=== PATIENT | male | born 1960 | race Caucasian/White ===

== ENCOUNTER → 2024-08-11 | Outpatient (CLI) | payer OTHER, SELFPAY ==
--- NOTE | 2024-08-11 07:53 | US_ITS ---
INDICATION: Abnormal results of liver function studies EXAMINATION: Ultrasound US Abdomen Limited (quadrant) TECHNIQUE: Frost scale and color doppler imaging was performed of the right upper quadrant. COMPARISON: No relevant prior comparison study available FINDINGS: LIVER: The liver is within normal limits in echogenicity and borderline in size measuring about 17 cm in length. The portal vein is patent with normal hepatopedal flow. Vague hyperechoic lesion in the left lobe of the liver measuring about 1.2 x 1.2 x 1.9 cm could be due to hemangioma. There is a small calcification measuring about 7 mm. There is no free fluid. GALLBLADDER AND BILIARY TREE: No shadowing gallstone, pericholecystic fluid or gallbladder wall thickening is demonstrated. The gallbladder wall measures 2.4 mm. The proximal common bile duct measures 4 mm, which is within normal limits for the patient''s age. Sonographic Daniel''s sign: Negative. PANCREAS: No focal abnormality is demonstrated in the pancreas as visualized on this exam. No pancreatic ductal dilatation. RIGHT KIDNEY: The right kidney measures 11 cm in length. The renal cortex measures 1 cm. No evidence of hydronephrosis. US/Abdomen Limited IMPRESSION: 1. Vague hyperechoic lesion in the left lobe of the liver statistically likely due to hemangioma. Follow-up examination in 4-6 months is recommended unless there is history of cancer, then multiphase CT scan of the liver suggested. 2. No evidence of gallstones. Electronically Signed: Tristan Rosales MD at 11:54 EDT ,
--- NOTE | 2024-08-11 07:54 | CT_ITS ---
STUDY: CT CHEST WITHOUT CONTRAST REASON FOR EXAM: Male, 64 years old. CHRONIC FATIQUE RADIATION DOSAGE (If Supplied By Facility): CTDIvol = ( 12.19 ) mGy, DLP = ( 219.42 ) mGycm TECHNIQUE: Transaxial imaging was performed without the administration of intravenous contrast material. Cardiac over read examination. Individualized dose optimization techniques were used for this CT. COMPARISON: No relevant priors. FINDINGS: CHEST Minimal linear scarring at the lung bases and in the right middle lobe. There is no demonstrated pleural abnormality. Normal heart and pericardium. No coronary artery calcification is seen. Normal mediastinum. Normal hilar regions. Normal unenhanced pulmonary arteries. Normal aorta arch and descending thoracic aorta. Normal osseous structures. Small hiatal hernia. Focal calcification in the left lobe of the liver posteriorly. CT/Limited Chest CT Cardiac Only IMPRESSION: No evidence of coronary artery calcification. Electronically Signed: Saad Soria MD at 13:52 EDT ,
--- OUTSIDE RECORDS SUMMARY | 2024-08-11 08:08 | XMS RPT_ITS | CCD ---
Author Organization [facility] Care Team Providers Care Manager Beverage Name Role Phone Papa Schulz MD Primary Care Provider [phone] MISHA BRAVO Referring Unavailable PAPA SCHULZ Primary Care Unavailable MISHA BRAVO Referring Unavailable PAPA SCHULZ Primary Care Unavailable Papa Schulz MD Primary Care Provider Papa Schulz MD Primary Care Provider PAPA SCHULZ Primary Care Unavailable PAPA SCHULZ Primary Care Unavailable DMITRIY MORALES Attending Unavailable PAPA SCHULZ Primary Care Unavailable DMITRIY MORALES Referring Unavailable PAPA SCHULZ Primary Care Unavailable PAPA SCHULZ Primary Care Unavailable DMITRIY MORALES Referring Unavailable PAPA SCHULZ Primary Care Unavailable MISHA BRAVO Attending Unavailable DMITRIY MORALES Referring Unavailable PAPA SCHULZ Primary Care Unavailable PAPA SCHULZ Attending Unavailable LACHO NICOLE III Primary Care Unavailable PAPA SCHULZ Referring Unavailable LACHO NICOLE III Primary Care Unavailable Papa Schulz MD Primary Care Provider Allergies Allergy Classification Reported Allergen(s) Allergy Type Date of Onset Reaction(s) Facility (14 sources) Lactase; Translations: [LACTASE] Drug Allergy 12-20-2006 [facility] Work Phone: Medications Current Medications Medication Drug Class(es) Dates Sig (Normalized) Sig (Original) multivitamin tablet (12 sources) Start: 06-06-2017 take 1 tablet by mouth once daily multivitamin tablet Take 1 tablet by mouth once daily. 0 06/06/2017 Active Comment on above: Take 1 tablet by luis miguel th once daily. perflutren lipid microspheres 1.3 mL in NaCl (PF) 0.9% 10 mL injection (DEFINITY) (10 sources) Start: 08-20-2022 End: 11-19-2023 perflutren lipid microspheres 1.3 mL in NaCl (PF) 0.9% 10 mL injection (DEFINITY) Start: 08-20-2022 End: 11-19-2023 perflutren lipid microsphere s 1.3 mL in NaCl (PF) 0.9% 10 mL injection (DEFINITY) 125 ml sodium chloride 9 mg/ ml prefilled syringe (16 sources) Start: 08-20-2022 End: 11-19-2023 sodium chloride 0.9 % (flush ) 10 mL (BD POSIFLUSH) Completed/Discontinued Medications Medication Drug Class(es) Dates Sig (Normalized) Sig (Original) [id number] 200 actuat albuterol 0.09 mg/actuat metered dose inhaler (20 sources) beta2-Adrenergic Agonist Start: 12-23-2017 End: 01-07-2023 albuterol (PROVENTIL) 5 mg/mL nebu Inhale 0.5 mL as instructed one time only for 1 dose. 1 DOSE NOW - BACK OFFICE. PLACE 0.5 ML PER DROPPER AND 2.5 ML OF NORMAL SALINE INTO RESERVOIR. 1 mL 12/23/2017 01/07/2023 Discontinued (Course of therapy completed) Start: 12-23-2017 End: 01-07-2023 take 2 puff(s) by inhalation every four hours as needed albuterol HFA (PROAIR HFA) 90 mcg/actuation inhaler Indications: URI with cough and congestion Inhale 2 Puffs as instructed every 4 hours as needed. 1 Inhaler 12/23/2017 01/07/2023 Discontinued Comment on above: Inhale 2 Puffs as in structed every 4 hours as needed. Inhale 0.5 mL as ins tructed one time only for 1 dose. 1 DOSE NOW - BACK OFFICE. PLACE 0.5 ML PER DROPPER AND 2.5 ML OF NORMAL SALINE INTO RESERVOIR. polymyxin b [id number] unt/ml / trimethoprim 1 mg/ml ophthalmic solution (2 sources) Dihydrofolate Reductase Inhibitor Antibacterial, Polymyxin-class Antibacterial Start: 09-16-20 take 1 drop(s) into the eye(s) four times daily trimethoprim-polymyxi n (POLYTRIM) 10,000 unit- 1 mg/mL ophthalmic solution Indications: Viral conjunctivitis Use 1 Drop in the left eye four times daily. 10 mL 0 09/16/2022 Active Comment on above: Use 1 Drop in the le ft eye four times daily. predniSONE 20 mg oral tablet (12 sources) Start: 12-24-19 End: 01-08-20 take 2 tablets by mouth once daily predniSONE (DELTASONE) 20 mg tablet Indications: URI with cough and congestion Prednisone 40 mg (2-20mg tablets) po QD for 5 days 10 tablet 12/23/2017 01/07/2023 Discontinued (Course of therapy completed) Comment on above: Prednisone 40 mg (2- 20mg tablets) po QD for 5 days Problems Active Problems Problem Classification Problem Date Documented Date Episodic/Chronic Disorders of lipid metabolism (2 sources) Hyperlipidemia, unspecified; Translations: [Pure hypercholesterolemia] Onset: 09-19-2021 Chronic Other lower respiratory disease (6 sources) Dyspnea; Translations: [Shortness of breath] Episodic Other screening for suspected conditions (not mental disorders or infectious disease) (7 sources) Electrocardiogram abnormal; Translations: [Abnormal electrocardiogram [ECG] [EKG]] Onset: 09-19-2021 Episodic Past or Other Problems Problem Classification Problem Date Documented Da te Episodic/Chronic Abdominal hernia (1 source) Recurrent inguinal hernia; Translations: [Unilateral inguinal hernia, without obstruction or gangrene, recurrent] Onset: 12-20-2006 Resolved: 01-20-2015 01-20-2015 Episodic Inflammation; infection of eye (except that caused by tuberculosis or sexually transmitteddisease) (4 sources) Viral conjunctivitis; Translations: [Viral conjunctivitis, unspecified] Onset: 09-16-2022 Episodic Malaise and fatigue (2 sources) Fatigue; Translations: [Other fatigue] Onset: 03-02-2022 Episodic Other lower respiratory disease (2 sources) Shortness of breath; Translations: [Shortness of breath] Onset: 03-02-2022 Episodic Results Test Name Value Interpretation Reference Range Facility [facility] 09-16-2022 [facility] Office Visit (UCUPNO ) RICARDO RUSS ([id number]) 1960 M Date Time Provider Department 09/16/22 9:50 AM KAYLIE FOX During your visit today, we recorded the following information about you: Temperature Pulse Respiration Blood pressure 98.3 degrees 77/minute 16/minute 141/83 Weight Height 68 kg 1.676 m Kaylie Fox APRN.MEDICAL STAFF COORDINATOR 09/16/2022 10:46 AM Signed [facility] Kaylie Fox APRN.CNP REFERRING PROVIDER: Self Ricardo Russ is a 62 year old male who is here for evaluation of eye drainage. History of Illness Since Last Visit: Patient presents with eye complaints for approximately 2 weeks. He has had irritation, SCHMITT's, watery eyes. Drainage has been clear. He denies any illness prior to the complaints of eye drainage. He did have some mild allergy symptoms. He states the itchiness has resolved, but he continues to complain of drainage. Drainage is not purulent and stringy. His eyes are not matted shut in the morning. He denies any URI or sinus complaints. He denies any complaints of fever or chills. Other than the watery drainage from the eyes, he has been healthy. He did use some eyedrops his granddaughter had. He was concerned because the drops were , but states they were helping and symptoms nearly resolved. HISTORY History reviewed. No pertinent past medical history. PAST SURGICAL HISTORY Procedure Laterality Date APPENDECTOMY COLONOSCOPY FLX DX W/COLLJ SPEC WHEN PFRMD 02/16/15 Colonoscopy INGUINAL HERNIA REPAIR HX 1977 LAPS SURG RPR RECURRENT INGUINAL HERNIA 01/20/07 right PAST SURGICAL HISTORY OF 6th digits removed bilateral hands and feet RPR 1ST INGUN HRNA AGE 5 YRS/> REDUCIBLE 2002 Hernia repair, inguinal right RPR 1ST INGUN HRNA AGE 5 YRS/> REDUCIBLE 1995 Hernia repair, inguinal Left TONSILLECTOMY PRIMARY/SECONDARY Tonsillectomy Social History Tobacco Use Smoking status: Never Smokeless tobacco: Never Substance Use Topics Alcohol use: Yes Comment: rarely Drug use: No ALLERGIES: ALLERGIES Allergen Reactions Lactose Intolerance* MEDICATIONS: Current Outpatient Medications Medication Sig multivitamin tablet Take 1 tablet by mouth once daily. trimethoprim-polymyxin (POLYTRIM) 10,000 unit- 1 mg/mL ophthalmic solution Use 1 Drop in the left eye four times daily. predniSONE (DELTASONE) 20 mg tablet Prednisone 40 mg (2-20mg tablets) po QD for 5 days (Patient not taking: Reported on 09/16/2022) albuterol HFA (PROAIR HFA) 90 mcg/actuation inhaler Inhale 2 Puffs as instructed every 4 hours as needed. (Patient not taking: No sig reported) albuterol (PROVENTIL) 5 mg/mL nebu Inhale 0.5 mL as instructed one time only for 1 dose. 1 DOSE NOW - BACK OFFICE. PLACE 0.5 ML PER DROPPER AND 2.5 ML OF NORMAL SALINE INTO RESERVOIR. Current Facility-Administered Medications Medication Dose Route Frequency perflutren lipid microspheres 1.3 mL in NaCl (PF) 0.9% 10 mL injection (DEFINITY) INTRAVENOUS DIRECTED PRN sodium chloride 0.9 % (flush) 10 mL (BD POSIFLUSH) 10 mL INTRAVENOUS DIRECTED PRN sodium chloride 0.9 % (flush) 10 mL (BD POSIFLUSH) 10 mL INTRAVENOUS DIRECTED PRN IMMUNIZATIONS: Immunization History Administered Date(s) Administered Tdap (Age 7+) 01/20/2015 REVIEW OF SYSTEMS Review of Systems Constitutional: Negative for chills, fatigue and fever. HENT: Negative for congestion, postnasal drip, rhinorrhea, sinus pressure, sinus pain and sore throat. Eyes: Positive for discharge, redness and itching. Negative for photophobia, pain and visual disturbance. Respiratory: Negative for cough, chest tightness, shortness of breath and wheezing. Vital Signs: BP 141/83 Pulse 77 Temp 98.3 Resp 16 Ht 5' 6 (1.68m) Wt 150 lb (68.0kg) SpO2 99% BMI 24.22 kg/(m2). Physical Exam Constitutional: Appearance: Normal appearance. He is normal weight. HENT: Head: Normocephalic and atraumatic. Nose: Nose normal. Eyes: General: Lids are normal. Lids are everted, no foreign bodies appreciated. Vision grossly intact. Gaze aligned appropriately. No allergic shiner, visual field deficit or scleral icterus. Right eye: Discharge present. No foreign body or hordeolum. Left eye: Discharge (Lt > Rt) present.No foreign body or hordeolum. Extraocular Movements: Extraocular movements intact. Conjunctiva/sclera: Left eye: Hemorrhage (very mild) present. Comments: Cataract Rt eye Pulmonary: Effort: Pulmonary effort is normal. Musculoskeletal: General: Normal range of motion. Cervical back: Normal range of motion. Skin: General: Skin is warm and dry. Neurological: Mental Status: He is alert. Psychiatric: Mood and Affect: Mood normal. Behavior: Behavior normal. Thought Content: Thought content normal. Judgment: Judgment normal. DATA REVIEW Oximetry : 99 (more content not included)... [facility] (CARDWS) RICARDO RUSS ([id number]) 1960 M Date Time Provider Department 09/06/22 MISHA BRAVO During your visit today, we recorded the following information about you: Natalie Owusu LPN 09/06/2022 1:31 PM Signed Michelle with [employer] called to report Zio Results: Result: V-Tach 5 beats Duration: 2 seconds Heart rate: 86-176 beats per minute SVT also in scan. Will upload results to site. Please review and advise. Natalie Cole RN 09/07/2022 3:43 PM Signed Claudia Desai APRN.MEDICAL STAFF COORDINATOR You 4 hours ago (11:04 AM) Reviewed. 2 runs of VT, 2 runs of SVT. Recent normal stress echo. Follow up with Dr. Bravo as planned for consideration of addition of BB if symptomatic with brief SVT. Thank you! Claudia Desai APRN.STEPHANIA Cole RN 09/07/2022 3:43 PM Signed Pt. notified. Voices understanding. Has follow up with Dr. Bravo on 11/12/22. States he will let us know if he becomes symptomatic prior to that office visit. Corrina Cole RN Allergies As of Date: 09/06/2022 Noted Allergy Reaction LACTOSE INTOLERANCE (LACTASE) 12/20/2006 Date Reviewed: 08/20/2022 Reviewed by: Corrina Cole RN - Fully Assessed Reason for Visit: Results [95] Prescriptions as of 09/07/2022 - predniSONE (DELTASONE) 20 mg tablet Prednisone 40 mg (2-20mg tablets) po QD for 5 days - albuterol HFA (PROAIR HFA) 90 mcg/actuation inhaler Inhale 2 Puffs as instructed every 4 hours as needed. - albuterol (PROVENTIL) 5 mg/mL nebu Inhale 0.5 mL as instructed one time only for 1 dose. 1 DOSE NOW - BACK OFFICE. PLACE 0.5 ML PER DROPPER AND 2.5 ML OF NORMAL SALINE INTO RESERVOIR. - multivitamin tablet Take 1 tablet by mouth once daily. Facility-Administered Medications as of 09/07/2022 - perflutren lipid microspheres 1.3 mL in NaCl (PF) 0.9% 10 mL injection (DEFINITY) - sodium chloride 0.9 % (flush) 10 mL (BD POSIFLUSH) - sodium chloride 0.9 % (flush) 10 mL (BD POSIFLUSH) Problem List As Of Date 09/06/2022 Noted Resolved Inguinal hernia without mention of obstruction *12/20/2006 01/20/2015 Encounter Status:Closed by CORRINA COLE on 09/07/22 Normal [facility] ECHOon 08-31-2022 Echocardiography Echocardiography Report: Transthoracic Echo [facility] Date of service: 08/31/2022 8:16:22 AM Ordering physician: MISHA BRAVO Indication: Fatigue; shortness of breath Technologist: Molly Khan [facility] Interpreting physician: Kannan Hernandez MD PATIENT: Name: MR. RICARDO RUSS : 1960 Age: 62 years Gender: M Primary rhythm: sinus. Height: 167.64 cm BSA: 1.82 m Weight: 70.76 kg BMI: 25.2 kg/m Heart rate 69 bpm Blood pressure 129/90 mmHg Agitated saline was administered to rule out shunt. Color Doppler was utilized to interrogate the cardiac valves assessed and spectral Doppler was utilized to determine the flow velocities and pressure gradients reported in this exam. MEASUREMENTS: Value Indexed Normal Max aortic dimension 2.7 cm Ao < 3.8 Left atrial volume 74 ml (biplane A-L) 41 ml/m Lexi <= 34 LV ID (diastole) 3.4 cm (2D) 1.87 cm/m LV ID (systole) 2.3 cm (2D) 1.28 cm/m IVS, leaflet tips 1.0 cm (2D) Posterior wall thickness 1.1 cm (2D) Left ventricular mass 105 g (2D) 58 g/m LV stroke volume 52 ml (2D biplane) LV end diastolic volume 75 ml (2D biplane) 41.1 ml/m 34<=EDVi<75 LV end systolic volume 23 ml (2D biplane) 12.4 ml/m Ejection Fraction 70 % (2D biplane) EF > 52 FINDINGS: LEFT VENTRICLE The left ventricle is normal in size. There is mild concentric left ventricular hypertrophy. Left ventricular systolic function is normal. Indeterminate left ventricular diastolic dysfunction. Mitral annular lateral E/e': 7.3. Mitral annular septal E/e': 11.5. Definity contrast used for endocardial border detection. Wall Motion: All scored segments are normal. RIGHT VENTRICLE The right ventricle is dilated. Right ventricular systolic function is normal. RV systolic tissue Doppler velocity is 15.3 cm/s. Tricuspid annular displacement is 1.9 cm. Estimated right ventricular systolic pressure is 47 mmHg consistent with mild pulmonary hypertension. Estimated right atrial pressure is 3 mmHg based on IVC assessment. LEFT ATRIUM The left atrial cavity is mildly dilated. Pulmonary Veins: The pulmonary venous pattern showed blunted systolic flow. RIGHT ATRIUM The right atrial cavity is dilated. Inferior Vena Cava: The inferior vena cava appears normal measuring 1.8 cm. The vessel decreases greater than 50 percent with inspiration. MITRAL VALVE The mitral valve leaflets are structurally normal. There is mild (1+ - 2+) mitral valve regurgitation. The pressure half time is 44 msec. The peak mitral E/A ratio is 2.09. The average mitral E/e' ratio is 9.4. The mitral flow deceleration time is 153 msec. TRICUSPID VALVE The tricuspid valve leaflets are structurally normal. There is mild (1+ - 2+) tricuspid valve regurgitation. AORTIC VALVE There is no aortic valve regurgitation. Tricuspid aortic valve. There is mild thickening. The peak gradient is 6 mmHg (peak velocity = 123.0 cm/s). PULMONIC VALVE The pulmonic valve was not seen or not interrogated. AORTA The visualized aorta is normal in size. Measurements - Mid ascending aorta 2.7 cm. PULMONARY ARTERIES The pulmonary arteries are unseen or not interrogated. INTERATRIAL SEPTUM There is evidence of intracardiac shunting as detected by agitated saline contrast. INTERVENTRICULAR SEPTUM The interventricular septum is normal. PERICARDIUM There is no pericardial effusion. CONCLUSIONS: - Exam indication: Fatigue; shortness of breath - The left ventricle is normal in size. There is mild concentric left ventricular hypertrophy. Left ventricular systolic function is normal. EF = 70 5% (2D biplane) Definity contrast used for endocardial border detection. Indeterminate left ventricular diastolic dysfunction. - The right ventricle is dilated. Right ventricular systolic function is normal. - The left atrial cavity is mildly dilated. - The right atrial cavity is dilated. - There is mild to moderate mitral regurgitation. - There is mild to moderate tricuspid regurgitation. - Agitated saline study performed is POSITIVE for shunt (clip 96, starting at beat 7). Color flow Doppler also reveals a left to right shunt. - The patient has not had a prior CC echocardiographic exam for comparison. * * * Final * * * CC [employer] Image : [id number] sSISUID Normal [facility] STRESS ECHO TREADMILLon 08-21 STRESS ECHO TREADMILL Stress Ice Skating Teacher Report: Stress Echo [facility] Date of service: 08/31/2022 9:03:36 AM Supervising physician: Kannan Hernandez MD PATIENT: Name: MR. RICARDO RUSS Age: 62 years Gender: M The supervising physician was in the department and immediately available. Final ------ Echocardiography Report: Stress Echo [facility] Date of service: 08/31/2022 9:03:36 AM Ordering physician: MISHA BRAVO Indication: Dyspnea on exertion; abnormal EKG Technologist: Molly Kahn [facility] Interpreting physician: Kannan Hernandez MD PATIENT: Name: MR. RICARDO RUSS : 1960 Age: 62 years Gender: M Height: 167.64 cm BSA: 1.82 m Weight: 70.76 kg BMI: 25.2 kg/m Heart rate 69 bpm Blood pressure 129/90 mmHg MEASUREMENTS: Value Normal Ejection Fraction 70 % (visual est.) EF > 52 FINDINGS: LEFT VENTRICLE Left ventricular systolic function is normal. Definity contrast used for endocardial border detection. Wall Motion: Rest: All scored segments are normal. Stress: All scored segments are normal. STRESS ECHO Peak HR 164 bpm. (104 % MPHR) Peak BP 180 mmHg/86 mmHg. CONCLUSIONS: - Exam indication: Dyspnea on exertion; abnormal EKG - The exercise stress echo was negative for ischemia at 104 % of MPHR (8.3 METS). - Left ventricular systolic function is normal. EF = 70 5% (visual est.) Definity contrast used for endocardial border detection. - Prior CC echocardiographic exam was performed today. Final ------ Stress ECG Report: Stress Echo [facility] Date of service: 08/31/2022 9:03:36 AM Ordering physician: MISHA BRAVO front office specialist: Hilda Sivlerman Food Selector: Debbie Gross Interpreting physician: Kannan Hernandez MD Patient name: MR. RICARDO RUSS Age: 62 years Gender: M Height: 167.64 cm BSA: 1.82 m Weight: 70.76 kg BMI: 25.2 kg/m Indication: Abnormal resting ECG and Shortness of breath Stress ECG Conclusion: Conclusion: Normal Stress ECG Summary: The patient's resting heart rate was 69 bpm and blood pressure was 129/90 mmHg. The patient exercised according to the Romel protocol. The estimated end-exercise MET level achieved using the FRIEND equation was 8.3, which is within the 50th to 75th percentile for age and sex. The estimated end-exercise MET level achieved using the previous ACSM equation was 10.2. The test was terminated due to end of protocol and the total exercise time was 9 minutes and 0 seconds. Other symptoms during the test included SOB. The maximum heart rate was 164 bpm, which is 104% of the predicted heart rate for age. Peak blood pressure was 180/86 mmHg. The double product achieved was [address]. Medications: Last Used NONE Resting ECG: Normal Sinus Rhythm, 1st Degree AV block and RBBB Symptoms at rest: No symptoms Exercise Protocol: Romel Stress Exercise Table: +-----+ +--- -----+ +---+- --+---+----+----+ Stage Speed (MPH) Grade(%) Time (min) HR SYS KATY RPE METS +-----+ +--- -----+ +---+- --+---+----+----+ 1 1.7 10.0 3.0 114 162 86 13.0 4.2 +-----+ +--- -----+ +---+- --+---+----+----+ 2 2.5 12.0 6.0 129 160 84 13.0 6.1 +-----+ +--- -----+ +---+- --+---+----+----+ +-----+ +--- ------+ +---+ ---+---+----+----+ Speed (MPH) Grade (%) Time (min) HR SYS KATY RPE METS +-----+ +--- ------+ +---+ ---+---+----+----+ Final 3.4 14.0 9.00 164 180 86 14.0 8.3 +-----+ +--- ------+ +---+ ---+---+----+----+ Recovery Table: +------+ +--- +---+---+ Stage Time (min) HR SYS KATY +------+ +--- +---+---+ 1 1.0 130 +------+ +--- +---+---+ 2 3.0 98 +------+ +--- +---+---+ 3 4.0 89 138 86 +------+ +--- +---+---+ 4 6.0 85 124 82 +------+ +--- +---+---+ Stress Observations: Resting HR: 69 bpm Peak HR: 164 bpm (104% MPHR) Resting BP: 129 / 90 mmHg Peak BP: 180 / 86 mmHg Total Exercise Time: 9 minutes 0 seconds METS achieved: 8.3 Chronotropic response index (CRI): 1.06 Heart rate recovery (HRR): 34 bpm Rate Pressure Product (RPP): 03506 [place] Treadmill Score: 9.0 Stress Exercise Observations: Reason for test termination: end of protocol, Symptoms during test: Other symptoms during the test included SOB, Heart rate response: Normal CRI (>0.8 Not on B Deandre) and Normal HRR (>12 or >[address]/EC), Blood pressure response: Normal BP respo (more content not included)... Normal [facility] [place] 08-30-2022 CNPN Telephone (CDLBME) RICARDO RUSS ([id number]) 1960 M Date Time Provider Department 08/30/22 DEBBIE GROSSGolden During your visit today, we recorded the following information about you: Debbie Gross RN 08/30/2022 1:56 PM Signed Spoke with patient regarding reminder for stress test tomorrow and given instructions. Allergies As of Date: 08/30/2022 Noted Allergy Reaction LACTOSE INTOLERANCE (LACTASE) 12/20/2006 Date Reviewed: 08/20/2022 Reviewed by: Corrina Cole RN - Fully Assessed Reason for Visit: Reminder Call [[id number]] Prescriptions as of 08/30/2022 - predniSONE (DELTASONE) 20 mg tablet Prednisone 40 mg (2-20mg tablets) po QD for 5 days - albuterol HFA (PROAIR HFA) 90 mcg/actuation inhaler Inhale 2 Puffs as instructed every 4 hours as needed. - albuterol (PROVENTIL) 5 mg/mL nebu Inhale 0.5 mL as instructed one time only for 1 dose. 1 DOSE NOW - BACK OFFICE. PLACE 0.5 ML PER DROPPER AND 2.5 ML OF NORMAL SALINE INTO RESERVOIR. - multivitamin tablet Take 1 tablet by mouth once daily. Facility-Administered Medications as of 08/30/2022 - perflutren lipid microspheres 1.3 mL in NaCl (PF) 0.9% 10 mL injection (DEFINITY) - sodium chloride 0.9 % (flush) 10 mL (BD POSIFLUSH) - perflutren lipid microspheres 1.3 mL in NaCl (PF) 0.9% 10 mL injection (DEFINITY) - sodium chloride 0.9 % (flush) 10 mL (BD POSIFLUSH) Problem List As Of Date 08/30/2022 Noted Resolved Inguinal hernia without mention of obstruction *12/20/2006 01/20/2015 Encounter Status:Closed by DEBBIE GROSS on 08/30/22 [facility] 08-20-2022 [facility] Office Visit (CAWSTR ) VENKATRICARDO SORIANO Corey ([id number]) 1960 M Date Time Provider Department 08/20/22 8:20 AM MISHA BRAVOWSTR During your visit today, we recorded the following information about you: Pulse Blood pressure Weight 64/minute 130/80 70.8 kg Misha Bravo MD 08/20/2022 8:49 AM Signed Misha Bravo MD Interventional Cardiology [facility] [address] [place], [place] [address] [phone] Chief Complaint Patient presents with: Consult HISTORY OF PRESENT ILLNESS: Mr. 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 PAST SURGICAL HISTORY Procedure Laterality Date APPENDECTOMY COLONOSCOPY FLX DX W/COLLJ SPEC WHEN PFRMD 02/16/15 Colonoscopy INGUINAL HERNIA REPAIR HX 1977 LAPS SURG RPR RECURRENT INGUINAL HERNIA 01/20/07 right PAST SURGICAL HISTORY OF 6th digits removed bilateral hands and feet RPR 1ST INGUN HRNA AGE 5 YRS/> REDUCIBLE 2002 Hernia repair, inguinal right RPR 1ST INGUN HRNA AGE 5 YRS/> REDUCIBLE 1995 Hernia repair, inguinal Left TONSILLECTOMY PRIMARY/SECONDARY Tonsillectomy FAMILY HISTORY Problem Relation Age of Onset Arthritis Father gout Blood Disease Father blood clots GI Mother irritable bowel dis other (kidney stones [Other]) Brother Heart Paternal Grandfather from [place] Heart Paternal Uncle from [place] None Brother None Brother None Brother Stroke Mother None Sister None Sister None Sister Social History Tobacco Use Smoking status: Never Smokeless tobacco: Never Substance Use Topics Alcohol use: Yes Comment: rarely Drug use: No ALLERGIES Allergen Reactions Lactose Intolerance* Medications: Current Outpatient Medications Medication Sig Dispense Refill multivitamin tablet Take 1 tablet by mouth once daily. 0 predniSONE (DELTASONE) 20 mg tablet Prednisone 40 mg (2-20mg tablets) po QD for 5 days 10 tablet 0 albuterol HFA (PROAIR HFA) 90 mcg/actuation inhaler Inhale 2 Puffs as instructed every 4 hours as needed. (Patient not taking: Reported on 03/02/2022 ) 1 Inhaler 0 albuterol (PROVENTIL) 5 mg/mL nebu Inhale 0.5 mL as instructed one time only for 1 dose. 1 DOSE NOW - BACK OFFICE. PLACE 0.5 ML PER DROPPER AND 2.5 ML OF NORMAL SALINE INTO RESERVOIR. 1 mL 0 Current Facility-Administered Medications Medication Dose Route Frequency Provider Last Rate Last Admin perflutren lipid microspheres 1.3 mL in NaCl (PF) 0.9% 10 mL injection (DEFINITY) INTRAVENOUS DIRECTED PRN Misha Bravo MD sodium chloride 0.9 % (flush) 10 mL (BD POSIFLUSH) 10 mL INTRAVENOUS DIRECTED PRN Khaled Meloud Sleik, MD perflutren lipid microspheres 1.3 mL in NaCl (PF) 0.9% 10 mL injection (DEFINITY) INTRAVENOUS DIRECTED PRBala Bravo MD sodium chloride 0.9 % (flush) 10 mL (BD POSIFLUSH) 10 mL INTRAVENOUS DIRECTED MARLENE Bravo MD Review of Systems Constitutional: Negative for chills, diaphoresis, fever, malaise/fatigue and weight loss. HENT: Negative for congestion, ear discharge, ear pain, hearing loss, nosebleeds, sinus pain, sore throat and tinnitus. Eyes: Negative for blurred vision, double vision, photophobia, pain, discharge and redness. Respiratory: Negative for cough, hemoptysis, sputum production, shortness of breath, wheezing and stridor. Cardiovascular: Negative for chest pain, palpitations, orthopnea, claudication, leg swelling and PND. Gastrointestinal: Negative for abdominal pain, blood in stool, constipation, diarrhea, heartburn, melena, nausea and vomiting. Genitourinary: Negative for dysuria, flank pain, frequency, hematuria and urgency. Musculoskeletal: Negative for back pain, falls, joint pain, myalgias and neck pain. Skin: Negative for itching and rash. Neurological: Positive for weakness. Negative for dizziness, tingling, tremors, sensory change, speech change, focal weakness, seizures, loss of consciousness and headaches. Endo/Heme/Allergies: Negative for environmental allergies and polydipsia. Does not bruise/bleed easily. Psychiatric/Behavioral : Negative for depression, hallucinations, memory loss, substance abuse and suicidal ideas. The patient is not nervous/anxious and does not have insomnia. Physical Examination: Vitals:BP 130/80 Pulse 6 (more content not included)... Normal [facility] 03-05-2022 CNPN Telephone (FAMPWS) RICARDO RUSS ([id number]) 1960 M Date Time Provider Department 03/05/22 DMITRIY MORALES During your visit today, we recorded the following information about you: Dmitriy Morales APRN.MEDICAL STAFF COORDINATOR 03/05/2022 12:23 PM Signed Can you please call the patient and let him know that I reviewed his test results. Urine came back negative for any bacteria. UA showed mild protein. Labs were relatively normal. Vitamin D and thyroid test within normal limits. AST which is a liver function test which is mildly elevated. At this time I see no causes for his symptoms. I would highly encourage him to eat a well-balanced diet, stay well-hydrated, and get adequate sleep. If he is agreeable we can do an at-home sleep study to evaluate for any sleep apnea. Please let me know what he prefers to do. Thank you. Dmitriy Morales APRN.STEPHANIA Moralez LPN 03/05/2022 12:54 PM Signed Patient notified of results, verbalizes understanding of instructions. Becky Moralez LPN Allergies As of Date: 03/05/2022 Noted Allergy Reaction LACTOSE INTOLERANCE (LACTASE) 12/20/2006 Date Reviewed: 03/02/2022 Reviewed by: Dmitriy Morales APRN.STEPHANIA - Fully Assessed Reason for Visit: Results [95] Prescriptions as of 03/15/2022 - predniSONE (DELTASONE) 20 mg tablet Prednisone 40 mg (2-20mg tablets) po QD for 5 days - albuterol HFA (PROAIR HFA) 90 mcg/actuation inhaler Inhale 2 Puffs as instructed every 4 hours as needed. - albuterol (PROVENTIL) 5 mg/mL nebu Inhale 0.5 mL as instructed one time only for 1 dose. 1 DOSE NOW - BACK OFFICE. PLACE 0.5 ML PER DROPPER AND 2.5 ML OF NORMAL SALINE INTO RESERVOIR. - multivitamin tablet Take 1 tablet by mouth once daily. Problem List As Of Date 03/05/2022 Noted Resolved Inguinal hernia without mention of obstruction *12/20/2006 01/20/2015 Encounter Status:Closed by DMITRIY MORALES on 03/15/22 Normal [facility] Bacteria Ur Culton 2 Bacteria identified Cx Nom (U) CULTURE, URINE: No growth (<1,000 CFU/ml) Normal [facility] Comment on above: Performed By: #### 6 30-4 ####[facility] [id number] [place] [address] [place] CBC W Auto Differential pane l (Bld)on 03-02-2022 Basophils (Bld) [#/Vol] 0.07 10*3/uL Normal <0.11 [facility] Comment on above: Order Comment: Speci men Type: BLOOD SPECIMENOrdering Facility: [facility] Address: [address] [place] [address] Performed By: #### 5 7021-8 ####[facility] [id number] [place] [address] [place] Basophils/100 WBC (Bld) 1.1 % Normal [facility] Comment on above: Order Comment: Speci men Type: BLOOD SPECIMENOrdering Facility: [facility] Address: [address] [place] [address] Performed By: #### 5 7021-8 ####[facility] [id number] [address] [place] Differential cell count method Nom (Bld) Auto Normal [facility] Comment on above: Order Comment: Speci men Type: BLOOD SPECIMENOrdering Facility: [facility] Address: [address] [place], [place] [id number] Performed By: #### 5 7021-8 ####[facility] [id number] [place] [address] [place] Eosinophils (Bld) [#/Vol] 0.28 10*3/uL Normal <0.46 [facility] Comment on above: Order Comment: Speci men Type: BLOOD SPECIMENOrdering Facility: [facility] Address: [address] [place], [place] [id number] Performed By: #### 5 7021-8 ####[facility] [id number] [address] [place] Eosinophils/100 WBC (Bld) 4.2 % Normal [facility] Comment on above: Order Comment: Speci men Type: BLOOD SPECIMENOrdering Facility: [facility] Address: [address] [place], [place] [id number] Performed By: #### 5 7021-8 ####[facility] [id number] [address] [place] Erythrocyte distribution width (RBC) [Ratio] 12.7 % Normal 11.5-15.0 [facility] Comment on above: Order Comment: Speci men Type: BLOOD SPECIMENOrdering Facility: [facility] Address: [address] [place], [place] [id number] Performed By: #### 5 7021-8 ####[facility] [id number] [address] [place] [facility] Hematocrit (Bld) [Volume fraction] 44.0 % Normal 39.0-51.0 [facility] Comment on above: Order Comment: Speci men Type: BLOOD SPECIMENOrdering Facility: [facility] Address: [address] [place], [place] [id number] Performed By: #### 5 7021-8 ####[facility] [id number] [place] [address] [place] Hemoglobin (Bld) [Mass/Vol] 14.7 g/dL Normal 13.0-17.0 [facility] Comment on above: Order Comment: Speci men Type: BLOOD SPECIMENOrdering Facility: [facility] Address: [address] [place], [place] [id number] Performed By: #### 5 7021-8 ####[facility] [id number] [place] [address] [place] IMMATURE GRAN % 0.2 % Normal [facility] Comment on above: Order Comment: Speci men Type: BLOOD SPECIMENOrdering Facility: [facility] Address: [address] [place], [place] [id number] Performed By: #### 5 7021-8 ####[facility] [id number] [address] [place] [facility] IMMATURE GRAN ABS <0.03 Normal <0.10 [facility] Comment on above: Order Comment: Speci men Type: BLOOD SPECIMENOrdering Facility: [facility] Address: [address] [place], [place] [id number] Performed By: #### 5 7021-8 ####[facility] [id number] [address] [place] Lymphocytes (Bld) [#/Vol] 2.77 10*3/uL Normal 1.00-4.00 [facility] Comment on above: Order Comment: Speci men Type: BLOOD SPECIMENOrdering Facility: [facility] Address: [address] [place], [place] [id number] Performed By: #### 5 7021-8 ####[facility] [id number] [address] [place] Lymphocytes/100 WBC (Bld) 42.0 % Normal [facility] Comment on above: Order Comment: Speci men Type: BLOOD SPECIMENOrdering Facility: [facility] Address: [address] [place] [address] Performed By: #### 5 7021-8 ####[facility] [id number] [place] [address] [place] MCH (RBC) [Entitic mass] 30.1 pg Normal 26.0-34.0 [facility] Comment on above: Order Comment: Speci men Type: BLOOD SPECIMENOrdering Facility: [facility] Address: [address] [place] [address] Performed By: #### 5 7021-8 ####[facility] [id number] [place] [address] [place] MCHC (RBC) [Mass/Vol] 33.4 g/dL Normal 30.5-36.0 [facility] Comment on above: Order Comment: Speci men Type: BLOOD SPECIMENOrdering Facility: [facility] Address: [address] [place] [address] Performed By: #### 5 7021-8 ####[facility] [id number] [place] [address] [place] MCV (RBC) [Entitic vol] 90.0 fL Normal 80.0-100.0 [facility] Comment on above: Order Comment: Speci men Type: BLOOD SPECIMENOrdering Facility: [facility] Address: [address] [place], [place] [id number] Performed By: #### 5 7021-8 ####[facility] [id number] [place] [address] [place] Monocytes (Bld) [#/Vol] 0.85 10*3/uL Normal <0.87 [facility] Comment on above: Order Comment: Speci men Type: BLOOD SPECIMENOrdering Facility: [facility] Address: [address] [place] [address] Performed By: #### 5 7021-8 ####[facility] [id number] [address] [place] Monocytes/100 WBC (Bld) 12.9 % Normal [facility] Comment on above: Order Comment: Speci men Type: BLOOD SPECIMENOrdering Facility: [facility] Address: [address] [place] [address] Performed By: #### 5 7021-8 ####[facility] [id number] [place] [address] [place] Neutrophils (Bld) [#/Vol] 2.62 10*3/uL Normal 1.45-7.50 [facility] Comment on above: Order Comment: Speci men Type: BLOOD SPECIMENOrdering Facility: [facility] Address: [address] [place], [place] [id number] Performed By: #### 5 7021-8 ####[facility] [id number] [place] [address] [place] Neutrophils/100 WBC (Bld) 39.6 % Normal [facility] Comment on above: Order Comment: Speci men Type: BLOOD SPECIMENOrdering Facility: [facility] Address: [address] [place], [place] [id number] Performed By: #### 5 7021-8 ####[facility] [id number] [place] [address] [place] Nucleated RBC (Bld) [#/Vol] 10*3/uL Normal <0.01 [facility] Comment on above: Order Comment: Speci men Type: BLOOD SPECIMENOrdering Facility: [facility] Address: [address] [place], [place] [id number] Performed By: #### 5 7021-8 ####[facility] [id number] [place] [address] [place] Nucleated RBC/100 WBC (Bld) [Ratio] 0.0 /100 WBC Normal [facility] Comment on above: Order Comment: Speci men Type: BLOOD SPECIMENOrdering Facility: [facility] Address: [address] [place], [place] [id number] Performed By: #### 5 7021-8 ####[facility] [id number] [place] [address] [place] Platelet mean volume (Bld) [Entitic vol] 9.5 fL Normal 9.0-12.7 [facility] Comment on above: Order Comment: Speci men Type: BLOOD SPECIMENOrdering Facility: [facility] Address: [address] [place], [place] [id number] Performed By: #### 5 7021-8 ####[facility] [id number] [place] [address] [place] Platelets (Bld) [#/Vol] 223 10*3/uL Normal 150-400 [facility] Comment on above: Order Comment: Speci men Type: BLOOD SPECIMENOrdering Facility: [facility] Address: [address] [place], [place] [id number] Performed By: #### 5 7021-8 ####[facility] [id number] [address] [place] [facility] RBC (Bld) [#/Vol] 4.89 10*6/uL Normal 4.20-6.00 [facility] Comment on above: Order Comment: Speci men Type: BLOOD SPECIMENOrdering Facility: [facility] Address: [address] [place] [address] Performed By: #### 5 7021-8 ####[facility] [id number] [address] OF [facility] WBC (Bld) [#/Vol] 6.60 10*3/uL Normal 3.70-11.00 [facility] Comment on above: Order Comment: Speci men Type: BLOOD SPECIMENOrdering Facility: [facility] Address: [address] [place], [place] [id number] Performed By: #### 5 7021-8 ####[facility] [id number] [address] [place] CNOVon 03-02-2022 CNOV Office Visit (FAMPWS ) RICARDO RUSS ([id number]) 1960 M Date Time Provider Department 03/02/22 1:20 PM DMITRIY MORALES During your visit today, we recorded the following information about you: Pulse Respiration Blood pressure Weight 54/minute 16/minute 140/88 73 kg Dmitriy Morales APRN.MEDICAL STAFF COORDINATOR 03/02/2022 2:24 PM Signed This is a 62 year old male who presents today with: Patient presents with: Acute Visit: SOB and fatique HISTORY OF PRESENT ILLNESS: Ricardo Russ is a 62 year old male. Patient presents with: Acute Visit: SOB and fatique Here in the office for SOB and fatigue. Has noticed he feels exhausted after work. More tired than normal. Has been worse the past 2 months. Noticed SOB about 2-3 weeks ago with exertion. Improves with rest. No illness, fever, chills, abdominal pain, or N/V/D. History of Covid twice, fall 2019 and then Spring 2020. Recovered well. No chest pain, palpitations, dizziness, or edema. BM's regular. PAST MEDICAL HISTORY: History reviewed. No pertinent past medical history. PAST SURGICAL HISTORY Procedure Laterality Date - APPENDECTOMY - COLONOSCOPY FLX DX W/COLLJ SPEC WHEN PFRMD 02/16/15 Colonoscopy - INGUINAL HERNIA REPAIR HX 1977 - LAPS SURG RPR RECURRENT INGUINAL HERNIA 01/20/07 right - PAST SURGICAL HISTORY OF 6th digits removed bilateral hands and feet - RPR 1ST INGUN HRNA AGE 5 YRS/> REDUCIBLE 2002 Hernia repair, inguinal right - RPR 1ST INGUN HRNA AGE 5 YRS/> REDUCIBLE 1995 Hernia repair, inguinal Left - TONSILLECTOMY PRIMARY/SECONDARY Tonsillectomy ALLERGIES Lactose Intolerance [Lactase] MEDICATIONS Current Outpatient Medications Medication Sig - multivitamin tablet Take 1 tablet by mouth once daily. - predniSONE (DELTASONE) 20 mg tablet Prednisone 40 mg (2-20mg tablets) po QD for 5 days - albuterol HFA (PROAIR HFA) 90 mcg/actuation inhaler Inhale 2 Puffs as instructed every 4 hours as needed. (Patient not taking: Reported on 03/02/2022 ) - albuterol (PROVENTIL) 5 mg/mL nebu Inhale 0.5 mL as instructed one time only for 1 dose. 1 DOSE NOW - BACK OFFICE. PLACE 0.5 ML PER DROPPER AND 2.5 ML OF NORMAL SALINE INTO RESERVOIR. No current facility-administered medications for this visit. FAMILY HISTORY Problem Relation Age of Onset - Arthritis Father gout - Blood Disease Father blood clots - GI Mother irritable bowel dis - other (kidney stones [Other]) Brother - Heart Paternal Grandfather from [place] - Heart Paternal Uncle from [place] - None Brother - None Brother - None Brother - Stroke Mother - None Sister - None Sister - None Sister Social History Tobacco Use - Smoking status: Never Smoker - Smokeless tobacco: Never Used Substance Use Topics - Alcohol use: Yes Comment: rarely - Drug use: No REVIEW OF SYSTEMS GENERAL: + Fatigue HEENT: Negative for frequent or significant headaches, No changes in hearing or vision. NECK: Negative for lumps, goiter, pain and significant neck swelling RESPIRATORY: + SOB CARDIOVASCULAR: Negative for chest pain, leg swelling, orthopnea, or palpitations GI: No nausea, vomiting, or diarrhea/constipation. No hematochezia/melena. No heartburn or reflux symptoms. : No history of dysuria, frequency or incontinence MUSCULOSKELETAL: Negative for joint pain or swelling. SKIN: Negative for lesions, rash, and itching ENDOCRINE: Negative for cold or heat intolerance, polyuria, polydipsia and goiter NEURO: No history of headaches, syncope, paralysis, seizures or tremors MOOD: Negative for depression, anxiety, or suicidal ideation. EXAM: BP 140/88 Pulse (!) 54 Resp 16 Wt 73 kg (161 lb) SpO2 97% BMI 25.99 kg/m? PHYSICAL EXAM: General Appearance: Well appearing, alert, in no acute distress, well-hydrated, well nourished. Skin: Skin color, texture, turgor normal, no suspicious rashes or lesions. Head: Normocephalic, no masses, lesions, tenderness or abnormalities. Eyes: Anicteric sclera. Extraocular movements are intact. Neck: Supple, no adenopathy; thyroid symmetric, normal size, no bruits. Lungs: Lungs clear to auscultation. No wheezing, rhonchi, rales. Heart: RRR without murmur, gallop, or rubs. No ectopy. Abdomen: Normal abdominal exam, Abdomen soft, non-tender. Bowel sounds normal. No masses, organomegaly, Negative CVA tenderness. Extremities: No deformities, edema, skin discoloration, clubbing or cyanosis. Good capillary refill. Peripheral Pulses: Normal, Capillary refill <2secs, strong peripheral pulses, Pulses palpable. ECG: Sinus rhythm with first-degree AV block, right bundle branch block. UA: WNL ASSESSMENT/PLAN: 1. Fatigue, unspecified type - ICD9: 780.79, ICD10: R53.83 (primary diagnosis) - Get the following labs and urine testing completed to further evaluate any acute causes of his symptoms. - CBC + DIFF - COMP (more content not included)... Normal [facility] RICARDO RUSS ([id number]) 1960 M Date Time Provider Department 03/02/22 12:45 PM NELLI SHABAZZ [facility] During your visit today, we recorded the following information about you: Temperature Pulse Respiration Blood pressure 97.2 degrees 68/minute 18/minute 128/82 Weight 73 kg Nelli Shabazz APRN.CNP 03/02/2022 1:06 PM Signed Patient triaged at [facility]. Here today with 2 months of sob, fatigue. Denies uri symptoms and chest pain. Referring Provider: SELF [200] Allergies As of Date: 03/02/2022 Noted Allergy Reaction LACTOSE INTOLERANCE (LACTASE) 12/20/2006 Date Reviewed: 03/02/2022 Reviewed by: Mila Reyes LPN - Fully Assessed Reason for Visit: Shortness of Breath [227] Cmt: SOB and fatigue x 2 months Primary Visit Diagnosis:SOB (shortness of breath) [R06.02] Prescriptions as of 03/02/2022 - predniSONE (DELTASONE) 20 mg tablet Prednisone 40 mg (2-20mg tablets) po QD for 5 days - albuterol HFA (PROAIR HFA) 90 mcg/actuation inhaler Inhale 2 Puffs as instructed every 4 hours as needed. - albuterol (PROVENTIL) 5 mg/mL nebu Inhale 0.5 mL as instructed one time only for 1 dose. 1 DOSE NOW - BACK OFFICE. PLACE 0.5 ML PER DROPPER AND 2.5 ML OF NORMAL SALINE INTO RESERVOIR. - multivitamin tablet Take 1 tablet by mouth once daily. Problem List As Of Date 03/02/2022 Noted Resolved Inguinal hernia without mention of obstruction *12/20/2006 01/20/2015 Encounter Status:Closed by NELLI SHABAZZ on 03/02/22 [facility] 03-02-2022 ROMELIA Telephone (HENRIQUE) RICARDO RUSS ([id number]) 1960 M Date Time Provider Department 03/02/22 DMITRIY MORALES During your visit today, we recorded the following information about you: Dmitriy Morales APRN.CNP 03/02/2022 2:59 PM Signed Can you please call the patient and let him know that his chest x-ray was normal. The office will be in touch with him once his lab results are reviewed. Please let me know if he has any questions. Thank you. Dmitriy Morales APRN.STEPHANIA Cates Ma 03/02/2022 3:20 PM Signed Message left on confidential vm Mary Cates Ma Allergies As of Date: 03/02/2022 Noted Allergy Reaction LACTOSE INTOLERANCE (LACTASE) 12/20/2006 Date Reviewed: 03/02/2022 Reviewed by: Dmitriy Morales APRN.CNP - Fully Assessed Reason for Visit: Results [95] Prescriptions as of 03/02/2022 - predniSONE (DELTASONE) 20 mg tablet Prednisone 40 mg (2-20mg tablets) po QD for 5 days - albuterol HFA (PROAIR HFA) 90 mcg/actuation inhaler Inhale 2 Puffs as instructed every 4 hours as needed. - albuterol (PROVENTIL) 5 mg/mL nebu Inhale 0.5 mL as instructed one time only for 1 dose. 1 DOSE NOW - BACK OFFICE. PLACE 0.5 ML PER DROPPER AND 2.5 ML OF NORMAL SALINE INTO RESERVOIR. - multivitamin tablet Take 1 tablet by mouth once daily. Problem List As Of Date 03/02/2022 Noted Resolved Inguinal hernia without mention of obstruction *12/20/2006 01/20/2015 Encounter Status:Closed by AMRY CATES MA on 03/02/22 Normal [facility] Comprehensive metabolic 2000 panelon 03-02-2022 Albumin [Mass/Vol] 4.6 g/dL Normal 3.9-4.9 [facility] Comment on above: Order Comment: Speci men Type: BLOOD SPECIMENOrdering Facility: [facility] Address: [address] [place] [address] Performed By: #### F T4, 3016-3, 42823-1 ####[facility] [id number] [place] [address] [place] ALP [Catalytic activity/Vol] 60 U/L Normal 38-113 [facility] Comment on above: Order Comment: Speci men Type: BLOOD SPECIMENOrdering Facility: [facility] Address: [address] [place], [place] [id number] Performed By: #### F T4, 3016-3, 83517-1 ####[facility] [id number] [place] [address] [place] ALT [Catalytic activity/Vol] 54 U/L Normal 10-54 [facility] Comment on above: Order Comment: Speci men Type: BLOOD SPECIMENOrdering Facility: [facility] Address: [address] Performed By: #### F T4, 3016-3, 44688-4 ####[facility] [id number] [place] [address] [place] Anion gap [Moles/Vol] 7 mmol/L Low 9-18 [facility] Comment on above: Order Comment: Speci men Type: BLOOD SPECIMENOrdering Facility: [facility] Address: [address] [place], [place] [id number] Performed By: #### F T4, 3015-3, ####[facility] [id number] [place] [address] [place] AST [Catalytic activity/Vol] 43 U/L High 14-40 [facility] Comment on above: Order Comment: Speci men Type: BLOOD SPECIMENOrdering Facility: [facility] [facility] Address: [address] [place], [place] [id number] Performed By: #### F T4, 3015-12, 62039-7 ####[facility] LABCLIA [id number] [place] [address] [place] Bilirubin [Mass/Vol] 0.7 mg/dL Normal 0.2-1.3 [facility] Comment on above: Order Comment: Speci men Type: BLOOD SPECIMENOrdering Facility: [facility] Address: [address] [place], [place] [id number] Performed By: #### F T4, 3, ####[facility] LABCLIA [id number] [place] [id number] [place] Calcium [Mass/Vol] 9.9 mg/dL Normal 8.5-10.2 [facility] Comment on above: Order Comment: Speci men Type: BLOOD SPECIMENOrdering Facility: [facility] Address: [address] [place], [place] [id number] Performed By: #### F T4, 3, 60462-8 ####[facility] LABCLIA [id number] [place] [address] [place] Chloride [Moles/Vol] 101 mmol/L Normal 97-105 [facility] Comment on above: Order Comment: Speci men Type: BLOOD SPECIMENOrdering Facility: [facility] Address: [address] [place] [address] Performed By: #### F T4, 3016-3, 17419-7 ####[facility] LABIA [id number] [place] [address] [place] CO2 [Moles/Vol] 29 mmol/L Normal 22-30 [facility] Comment on above: Order Comment: Speci men Type: BLOOD SPECIMENOrdering Facility: [facility] Address: [address] [place] [address] Performed By: #### F T4, 3016-3, 07518-3 ####[facility] LABIA [id number] [address] [facility] Creatinine [Mass/Vol] 1.18 mg/dL Normal 0.73-1.22 [facility] Comment on above: Order Comment: Speci men Type: BLOOD SPECIMENOrdering Facility: [facility] Address: [address] [place] [address] Performed By: #### F T4, 3016-3, 29942-1 ####[facility] LABIA [id number] [address] STATES OF [facility] ESTIMATED GLOMERULAR FILTRATION RATE 70 mL/min/1.73m??? Normal >=60 [facility] Comment on above: Order Comment: Speci men Type: BLOOD SPECIMENOrdering Facility: [facility] Address: [address] [place] [address] Result Comment: Kathrin mated Glomerular Filtration Rate (eGFR) is calculated using the 2020 CKD-EPI creatinine equation. This equation utilizes serum creatinine, sex, and age as parameters. The creatinine assay has traceable calibration to isotope dilution-mass spectrometry. Refer to KDIGO guidelines for clinical interpretation. In patients with unstable renal function, e.g. those with acute kidney injury, the eGFR may not accurately reflect actual GFR. Performed By: #### F , 3015-12, ####[facility]CLIA [id number] [facility] [address] [address] [place] Glucose [Mass/Vol] 84 mg/dL Normal 74-99 [facility] Comment on above: Order Comment: Speccameron wylie Type: BLOOD SPECIMENOrdering Facility: [facility] Address: [address] [place] [address] Result Comment: The [place] Diabetes Association (ADA) provides guidance for cutoff values for fasting glucose and random glucose. The ADA defines fasting as no caloric intake for at least 8 hours. Fasting plasma glucose results between 100 to 125 mg/dL indicate increased risk for diabetes (prediabetes). Fasting plasma glucose results greater than or equal to 126 mg/dL meet the criteria for diagnosis of diabetes. In the absence of unequivocal hyperglycemia, results should be confirmed by repeat testing. In a patient with classic symptoms of hyperglycemia or hyperglycemic crisis, random plasma glucose results greater than or equal to 200 mg/dL meet the criteria for diagnosis of diabetes. Reference: Standards of Medical Care in Diabetes 2016, [place] [employer]. Diabetes Care. 2016.39(Suppl 1). Performed By: #### F , 3015-12, ####[facility] LABCLIA [id number] [place] [address] [place] Potassium [Moles/Vol] 4.9 mmol/L Normal 3.7-5.1 [facility] Comment on above: Order Comment: Megan wylie Type: BLOOD SPECIMENOrdering Facility: [facility] Address: [address] [place] [address] Performed By: #### F , 3015-12, ####[facility] LABCLIA [id number] [facility] [address] [address] [place] Protein [Mass/Vol] 6.2 g/dL Low 6.3-8.0 [facility] Comment on above: Order Comment: Speci men Type: BLOOD SPECIMENOrdering Facility: [facility] Address: [address] [place], [place] [id number] Performed By: #### F T4, 6-3, 42741-4 ####[facility] LABCLIA [id number] [place] [address] [place] Sodium [Moles/Vol] 137 mmol/L Normal 136-144 [facility] Comment on above: Order Comment: Speci men Type: BLOOD SPECIMENOrdering Facility: [facility] Address: [address] [place], [place] [id number] Performed By: #### F T4, 3015-3, 66522-3 ####[facility] LABIA [id number] [place] [address] [place] Urea nitrogen [Mass/Vol] 15 mg/dL Normal 9-24 [facility] Comment on above: Order Comment: Speci men Type: BLOOD SPECIMENOrdering Facility: [facility] Address: [address] [place], [place] [id number] Performed By: #### F T4, 3015-3, 67112-9 ####[facility] LABIA [id number] [place] [address] [place] T4 FREE/FREE THYROXon 2021 Free T4 [Mass/Vol] 0.9 ng/dL Normal 0.9-1.7 [facility] Comment on above: Order Comment: Speci men Type: BLOOD SPECIMENOrdering Facility: [facility] Address: [address] [place] [address] Performed By: #### F T4, 3015-3, 57977-6 ####[facility] LABIA [id number] [place] [address] [place] TSH SerPl-aCncon 03-02-2022 TSH Qn 1.780 m[IU]/L Normal 0.270-4.200 [facility] Comment on above: Order Comment: Speci men Type: BLOOD SPECIMENOrdering Facility: [facility] Address: [address] [place] [address] Performed By: #### F T4, 3016-3, 80049-2 ####[facility] LABCLIA [id number] [place] [address] [place] UA DIP, URINE (POC)on 2021 BILIRUBIN UA (POCT) Negative Negative [facility] CLARITY UA (POCT) Clear [facility] COLOR UA (POCT) Yellow [facility] GLUCOSE UA (POCT) Negative Negative mg/dL [facility] HEMOGLOBIN/BLOOD UA (POCT) Negative Negative [facility] KETONE UA (POCT) Negative Negative mg/dL [facility] LEUKOCYTES UA (POCT) Negative Negative [facility] NITRITE UA (POCT) Negative Negative [facility] PH UA (POCT) 5.5 4.5 - 8.0 [facility] Protein Ql (U) Negative Negative mg/dL [facility] SPECIFIC GRAVITY UA (POCT) <=1.005 Abnormal 1.005 - 1.030 [facility] UROBILINOGEN UA (POCT) 0.2 E.U./dL Normal E.U./dL [facility] Urinalysis complete panel (U )on 03-02-2022 Bilirubin Ql (U) Negative Normal Negative [facility] Comment on above: Order Comment: Speci men Type: URINE SPECIMENOrdering Facility: [facility] Address: [address] [place], [place] [id number] Performed By: #### 2 4356-8 ####[facility] LABCLIA [id number] [place] [address] [place] CALCIUM OXALATE CRYSTALS (UA) Few Abnormal None Seen [facility] Comment on above: Order Comment: Speci men Type: URINE SPECIMENOrdering Facility: [facility] Address: [address] [place] [address] Performed By: #### 2 4356-8 ####[facility] LABCLIA [id number] [place] [address] [place] Clarity (Unsp spec) Clear Normal Clear [facility] Comment on above: Order Comment: Speci men Type: URINE SPECIMENOrdering Facility: [facility] Address: [address] [place] [address] Performed By: #### 2 4356-8 ####[facility] LABCLIA [id number] [place] [address] [place] Color (U) Straw Normal Yellow [facility] Comment on above: Order Comment: Speci men Type: URINE SPECIMENOrdering Facility: [facility] Address: [address] [place] [address] Performed By: #### 2 4356-8 ####[facility] LABIA [id number] [place] [address] [place] Epithelial cells LM.HPF (Urine sed) [#/Area] Few Normal [facility] Comment on above: Order Comment: Speci men Type: URINE SPECIMENOrdering Facility: [facility] Address: [address] [place], [place] [id number] Performed By: #### 2 4356-8 ####[facility] LABIA [id number] [place] [address] [place] Glucose Test strip (U) [Mass/Vol] Negative Normal Negative [facility] Comment on above: Order Comment: Speci men Type: URINE SPECIMENOrdering Facility: [facility] Address: [address] [place], [place] [id number] Performed By: #### 2 4356-8 ####[facility] LABIA [id number] [place] [address] [place] Hemoglobin Ql (U) Negative Normal Negative [facility] Comment on above: Order Comment: Speci men Type: URINE SPECIMENOrdering Facility: [facility] Address: [address] [place], [place] [id number] Performed By: #### 2 4356-8 ####[facility] LABCLIA [id number] [place] [address] [place] Ketones Ql (U) Negative Normal Negative [facility] Comment on above: Order Comment: Speci men Type: URINE SPECIMENOrdering Facility: [facility] Address: [address] [place] [address] Performed By: #### 2 4356-8 ####[facility] LABCLIA [id number] [place] [address] [place] Leukocyte esterase Test strip Ql (U) Negative Normal Negative [facility] Comment on above: Order Comment: Speci men Type: URINE SPECIMENOrdering Facility: [facility] Address: [address] [place] [address] Performed By: #### 2 4356-8 ####[facility] LABCLIA [id number] [place] [address] [place] Nitrite Ql (U) Negative Normal Negative [facility] Comment on above: Order Comment: Speci men Type: URINE SPECIMENOrdering Facility: [facility] Address: [address] [place] [address] Performed By: #### 2 4356-8 ####[facility] LABCLIA [id number] [place] [address] [place] pH (U) 6.0 [pH] Normal 5.0-8.0 [facility] Comment on above: Order Comment: Speci men Type: URINE SPECIMENOrdering Facility: [facility] Address: [address] [place], [place] [id number] Performed By: #### 2 4356-8 ####[facility] LABCLIA [id number] [place] [address] [place] Protein (U) [Mass/Vol] 1+ Abnormal Negative [facility] Comment on above: Order Comment: Speci men Type: URINE SPECIMENOrdering Facility: [facility] Address: [address] [place], [place] [id number] Performed By: #### 2 4356-8 ####[facility] LABIA [id number] [place] [address] [place] RBC LM.HPF (Urine sed) [#/Area] 0-3 /HPF Normal 0-3 /HPF [facility] Comment on above: Order Comment: Speci men Type: URINE SPECIMENOrdering Facility: [facility] Address: [address] [place], [place] [id number] Performed By: #### 2 4356-8 ####[facility] [id number] [address] [place] Specific gravity (U) [Rel density] 1.005 Normal 1.005-1.030 [facility] Comment on above: Order Comment: Speci men Type: URINE SPECIMENOrdering Facility: [facility] Address: [address] [place], [place] [id number] Performed By: #### 2 4356-8 ####[facility] LABIA [id number] [address] Urobilinogen Ql (U) Negative Normal Negative [facility] Comment on above: Order Comment: Speci men Type: URINE SPECIMENOrdering Facility: [facility] Address: [address] [place], [place] [id number] Performed By: #### 2 4356-8 ####[facility] LABIA [id number] [place] [address] [place] WBC LM.HPF (Urine sed) [#/Area] 0-5 /HPF Normal 0-5 /HPF [facility] Comment on above: Order Comment: Speci men Type: URINE SPECIMENOrdering Facility: [facility] Address: [address] [place], [place] [id number] Performed By: #### 2 4356-8 ####[facility] LABCLIA [id number] [place] [address] [place] VITAMIN D 25 HYDROXYon 03-02 25-hydroxyvitamin D3 [Mass/Vol] 33.2 ng/mL Normal 31.0-80.0 [facility] Comment on above: Order Comment: Speci men Type: BLOOD SPECIMENOrdering Facility: [facility] Address: [address] [place] [address] Result Comment: Clas sification of 25 [place] Vitamin D status: Deficiency/Insufficiency: < or = 30 ng/ml. Sufficiency/Optimal Levels: 31-80 ng/mL Toxicity: > 100 ng/mL. Test performed by chemiluminescent immunoassay. Performed By: #### V ITD ####[facility] LABCLIA [id number] [place] [address] [place] XR CHEST 2V FRONTAL/LATon XR CHEST 2V FRONTAL/LAT * * *Final Report* * * DATE OF EXAM: Mar 02 2022 2:22PM WOX [id number] - XR CHEST 2V FRONTAL/LAT / PROCEDURE REASON: SOB (shortness of breath) * * * * Physician Interpretation * * * * EXAMINATION: CHEST RADIOGRAPH (2 VIEW FRONTAL and LATERAL) CLINICAL HISTORY: SOB (shortness of breath) MQ: XC2_6 EXAM DATE/TIME: 03/02/2022 2:22 PM COMPARISON: No relevant prior studies available. RESULT: Lines, tubes, and devices: None. Lungs and pleura: No consolidation. No lung mass. No pleural effusion. No pneumothorax. Cardiomediastinal silhouette: Normal cardiomediastinal silhouette. Bones and soft tissues: Unremarkable. IMPRESSION: No acute radiographic abnormality. Foster Parent: PSCB Transcribe Date/Time: Mar 02 2022 2:26P Dictated by : ABDIAS GUY MD This examination was interpreted and the report reviewed and electronically signed by: ABDIAS GUY MD on Mar 02 2022 2:30PM EST [id number] Normal [facility] XR Chest PA and Lateralon IMPRESSION: No acute radiographic abnormality. Foster Parent: EMMANUEL Transcribe Date/Time: Mar 02 2022 2:26P Dictated by : ABDIAS GUY MD This examination was interpreted and the report reviewed and electronically signed by: ABDIAS GUY MD on Mar 02 2022 2:30PM EST [email or web address]_NOT_US E_DIVISION OF RADIOLOGY * * *Final Report* * * DATE OF EXAM: Mar 02 2022 2:22PM WOX 5291 - XR CHEST 2V FRONTAL/LAT / PROCEDURE REASON: SOB (shortness of breath) * * * * Physician Interpretation * * * * EXAMINATION: CHEST RADIOGRAPH (2 VIEW FRONTAL & LATERAL) CLINICAL HISTORY: SOB (shortness of breath) MQ: XC2_6 EXAM DATE/TIME: 03/02/2022 2:22 PM COMPARISON: No relevant prior studies available. RESULT: Lines, tubes, and devices: None. Lungs and pleura: No consolidation. No lung mass. No pleural effusion. No pneumothorax. Cardiomediastinal silhouette: Normal cardiomediastinal silhouette. Bones and soft tissues: Unremarkable. [email or web address]_NOT_US E_DIVISION OF RADIOLOGY Provider, [facility] - 03/02/2022 * * *Final Report* * * DATE OF EXAM: Mar 02 2022 2:22PM WOX 5291 - XR CHEST 2V FRONTAL/LAT / PROCEDURE REASON: SOB (shortness of breath) * * * * Physician Interpretation * * * * EXAMINATION: CHEST RADIOGRAPH (2 VIEW FRONTAL & LATERAL) CLINICAL HISTORY: SOB (shortness of breath) MQ: XC2_6 EXAM DATE/TIME: 03/02/2022 2:22 PM COMPARISON: No relevant prior studies available. RESULT: Lines, tubes, and devices: None. Lungs and pleura: No consolidation. No lung mass. No pleural effusion. No pneumothorax. Cardiomediastinal silhouette: Normal cardiomediastinal silhouette. Bones and soft tissues: Unremarkable. IMPRESSION IMPRESSION: No acute radiographic abnormality. Foster Parent: EMMANUEL Transcribe Date/Time: Mar 02 2022 2:26P Dictated by : ABDIAS GUY MD This examination was interpreted and the report reviewed and electronically signed by: ABDIAS GUY MD on Mar 02 2022 2:30PM [facility] Radiology Study observation (narrative) [facility] XR Chest PA and LateralOrder ed By: [facility] Provider on 03-02-2022 [facility] [place] 09-20-2021 STEPHANIAN Telephone (BELLAWS) RICARDO RUSS ([id number]) 1960 M Date Time Provider Department 09/20/21 DMITRIY MORALES During your visit today, we recorded the following information about you: Dmitriy Morales APRN.MEDICAL STAFF COORDINATOR 09/20/2021 6:42 PM Signed Can you please call the patient and let him know that I reviewed his lab results. His A1c was normal, I see no signs of diabetes. However his triglycerides were elevated as well as decreased HDL, which is the good cholesterol. I recommend starting a fish oil, try to increase healthy fats in the diet such as fish, avocado, olive oil, vegetables, and trying to get some form of exercise. No further testing needed at this time. Please let me know if he has any questions. Thank you. Dmitriy Morales APRN.STEPHANIA Dawn Ma 09/21/2021 9:36 AM Signed Tried to reach pt, VM not set up yet. Letter mailed to pt home of results. Cecily Dawn MA Allergies As of Date: 09/20/2021 Noted Allergy Reaction LACTOSE INTOLERANCE (LACTASE) 12/20/2006 Date Reviewed: 09/19/2021 Reviewed by: Cecily Dawn Ma - Fully Assessed Reason for Visit: Results [95] Prescriptions as of 09/21/2021 - predniSONE (DELTASONE) 20 mg tablet Prednisone 40 mg (2-20mg tablets) po QD for 5 days - albuterol HFA (PROAIR HFA) 90 mcg/actuation inhaler Inhale 2 Puffs as instructed every 4 hours as needed. - albuterol (PROVENTIL) 5 mg/mL nebu Inhale 0.5 mL as instructed one time only for 1 dose. 1 DOSE NOW - BACK OFFICE. PLACE 0.5 ML PER DROPPER AND 2.5 ML OF NORMAL SALINE INTO RESERVOIR. - multivitamin tablet Take 1 tablet by mouth once daily. Problem List As Of Date 09/20/2021 Noted Resolved Inguinal hernia without mention of obstruction *12/20/2006 01/20/2015 Letter Text Encounter Status:Closed by CECILY DAWN MA on 09/21/21 Normal [facility] CNOVon 09-19-2021 CNOV Office Visit (FAMPWS ) RICARDO RUSS ([id number]) 1960 M Date Time Provider Department 09/19/21 8:00 AM PAPA SCHULZ During your visit today, we recorded the following information about you: Pulse Respiration Blood pressure Weight 74/minute 16/minute 118/70 73.9 kg Papa Schulz MD 09/19/2021 5:20 PM Signed Chief Complaint Patient presents with: Multiple Concerns: diabetes and skin lesions HPI Ricardo Corey Russ is a 61 year old male who presents here today for diabetes concerns. Previous patient of Dr. Nicole. No bowel, Gi, or urinary issues. Derm: has a spot on the right thigh and the outer part of right eye. Does not seem to be changing much, maybe have gotten a little bigger over the last few years. Concerned about diabetes, he has a numb spot to the ball of the right foot that at times will burn, sometimes worse at night. Does not keep him awake during the night. He has occ dizziness if he hasn't eat a lot or gone too long without eating. He has an aunt and brother who are diabetic, mom and dad did not have diabetes as far as he knows. Denies any excessive thirst or urination, no vision changes. 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 Past medical history, appointments, medications, allergies reviewed. Previous Medical History No past medical history on file. Previous Surgical History PAST SURGICAL HISTORY Procedure Laterality Date - APPENDECTOMY - COLONOSCOP W/ OR W/O [facility] SPEC 02/16/15 Colonoscopy - INGUINAL HERNIA REPAIR HX 1977 - LAP HERNIA REPAIR RECURRENT-CRISTOBAL 01/20/07 right - PAST SURGICAL HISTORY OF 6th digits removed bilateral hands and feet - REMOVAL OF TONSILS,<12 Y/O Tonsillectomy - REPAIR ING HERNIA,5+Y/O,REDUCIBL 2002 Hernia repair, inguinal right - REPAIR ING HERNIA,5+Y/O,REDUCIBL 1995 Hernia repair, inguinal Left Family History FAMILY HISTORY Problem Relation Age of Onset - Arthritis Father gout - Blood Disease Father blood clots - GI Mother irritable bowel dis - other (kidney stones [Other]) Brother - Heart Paternal Grandfather from [place] - Heart Paternal Uncle from [place] - None Brother - None Brother - None Brother - Stroke Mother - None Sister - None Sister - None Sister Patient Allergies ALLERGIES Allergen Reactions - Lactose Intolerance* Current Medications Current Outpatient Medications on File Prior to Visit Medication Sig - predniSONE (DELTASONE) 20 mg tablet Prednisone 40 mg (2-20mg tablets) po QD for 5 days - albuterol HFA (PROAIR HFA) 90 mcg/actuation inhaler Inhale 2 Puffs as instructed every 4 hours as needed. - albuterol (PROVENTIL) 5 mg/mL nebu Inhale 0.5 mL as instructed one time only for 1 dose. 1 DOSE NOW - BACK OFFICE. PLACE 0.5 ML PER DROPPER AND 2.5 ML OF NORMAL SALINE INTO RESERVOIR. - multivitamin tablet Take 1 tablet by mouth once daily. No current facility-administered medications on file prior to visit. Social History Social History Tobacco Use - Smoking status: Never Smoker - Smokeless tobacco: Never Used Substance Use Topics - Alcohol use: Yes Comment: rarely - Drug use: No EXAM: BP 118/70 Pulse 74 Resp 16 Wt 73.9 kg (163 lb) BMI 26.31 kg/m? General Appearance: Well appearing, alert, in no acute distress, well-hydrated, well nourished.. Skin: kenyatta keratosis right side face, small inflamed dry skin right thigh. Lungs: Lungs clear to auscultation. No wheezing, rhonchi, rales.. Heart: RRR without murmur, gallop, or rubs. No ectopy. Health Maintenance List COVID-19 VACCINE(1) Never done DEPRESSION SCREENING Never done HEPATITIS C SCREENING Never done HIV SCREENING Never done SHINGRIX VACCINE(1 of 2) Never done PROSTATE CANCER SCREENING DISCUSSION due on 06/14/2016 DIABETES SCREEN due on 06/20/2020 INFLUENZA(1) Never done LIPID SCREEN due on 06/20/2022 DTAP,TDAP,TD(2 - Td or Tdap) due on 01/20/2025 COLORECTAL CANCER SCREENING due on 02/16/2025 MENINGOCOCCAL CONJUGATE Aged Out Data reviewed none ASSESSMENT/PLAN: 1. Screening for diabetes mellitus - ICD9: V77.1, ICD10: Z13.1 (primary diagnosis) - COMP METABOLIC PANEL - HGB A1C 2. Hyperlipidemia, unspecified hyperlipidemia type - ICD9: 272.4, ICD10: E78.5 - LIPID PANEL BASIC - COMP METABOLIC PANEL Notify of lab results Monitor skin Follow up prn I agree with the Chief Complaint, ROS, and Past Histories independently gathered by the clinical manufacturing support engineer and the remaining scribed note accurately describes my personal service to the patient. Medical Decision Making: Problems: Low: 2+ self-limited or minor problems Data: Unique test(s) ordered: 2 Risk: Low: Low risk from testing/treatment Medical Decision Making Level: 3 - Low Papa Schulz MD The documentation for this note was completed by Cecily Dawn Ma acting as scribe for Papa Brothers (more content not included)... Normal [facility] Comp Metabolic Panelon 09-19 Albumin [Mass/Vol] 4.4 g/dL Normal 3.9-4.9 [facility] Comment on above: Performed By: #### C MP, LIPB, HBA1C ####[facility] [id number] [place], [place] [phone] ALP [Catalytic activity/Vol] 54 U/L Normal 38-113 [facility] Comment on above: Performed By: #### C MP, LIPB, HBA1C ####[facility] [id number] [place] [address], [place] [phone] ALT [Catalytic activity/Vol] 53 U/L Normal 10-54 [facility] Comment on above: Performed By: #### C MP, LIPB, HBA1C ####[facility], [place] [phone] Anion gap [Moles/Vol] 9 mmol/L Normal 9-18 [facility] Comment on above: Performed By: #### C MP, LIPB, HBA1C ####[facility], [place] [phone] AST [Catalytic activity/Vol] 39 U/L Normal 14-40 [facility] Comment on above: Performed By: #### C MP, LIPB, HBA1C ####[place] [address] [address], [place] [phone] Bilirubin [Mass/Vol] 0.7 mg/dL Normal 0.2-1.3 [facility] Comment on above: Performed By: #### C MP, LIPB, HBA1C ####[facility], [place] [phone] Calcium [Mass/Vol] 9.4 mg/dL Normal 8.5-10.2 [facility] Comment on above: Performed By: #### C MP, LIPB, HBA1C ####[place] [address] [address], [place] [phone] Chloride [Moles/Vol] 102 mmol/L Normal 97-105 [facility] Comment on above: Performed By: #### C MP, LIPB, HBA1C ####[facility], [place] [phone] CO2 [Moles/Vol] 27 mmol/L Normal 22-30 [facility] Comment on above: Performed By: #### C MP, LIPB, HBA1C ####[facility], [place] [phone] Creatinine [Mass/Vol] 1.15 mg/dL Normal 0.73-1.22 [facility] Comment on above: Performed By: #### C MP, LIPB, HBA1C ####[facility] [address] [place], [place] [phone] eGFR- Amer. >60 Normal [facility] Comment on above: Performed By: #### C MP, LIPB, HBA1C ####[facility] [place], [place] [phone] eGFR-All Other Races >60 Normal [facility] Comment on above: Result Comment: eGFR (Estimated GFR) Units of measure: mL/min/1.73 meters squared eGFR is derived from the reexpressed MDRD Study equation using the following parameters: serum creatinine, age, gender and race. The creatinine assay has been calibrated to be traceable to IDMS. An eGFR <60 mL/min/1.73m2 for >3 months is consistent with chronic kidney disease. Refer to KDOQI guidelines for clinical interpretation. In patients with unstable renal function, e.g. those with acute kidney injury, the eGFR may not accurately reflect actual GFR. Note: On 12/16/2021, the eGFR calculation will be updated to the NKF-ASN Task Force recommended 2020 CKD-EPI creatinine equation which does not include a race variable. For more information or to access a 2020 CKD-EPI calculator, visit the National Kidney Foundation website at kidney.org/professionals/kdoqi/gfr_calculator. Performed By: #### C MP, LIPB, HBA1C ####[facility] [address] [place], [place] [phone] Glucose [Mass/Vol] 89 mg/dL Normal 74-99 [facility] Comment on above: Result Comment: The [place] Diabetes Association (ADA) provides guidance for cutoff values for fasting glucose and random glucose. The ADA defines fasting as no caloric intake for at least 8 hours. Fasting plasma glucose results between 100 to 125 mg/dL indicate increased risk for diabetes (prediabetes). Fasting plasma glucose results greater than or equal to 126 mg/dL meet the criteria for diagnosis of diabetes. In the absence of unequivocal hyperglycemia, results should be confirmed by repeat testing. In a patient with classic symptoms of hyperglycemia or hyperglycemic crisis, random plasma glucose results greater than or equal to 200 mg/dL meet the criteria for diagnosis of diabetes. Reference: Standards of Medical Care in Diabetes 2016, [place] Diabetes Association. Diabetes Care. 2016.39(Suppl 1). Performed By: #### C MP, LIPB, HBA1C ####[facility] [place], [place] [phone] Potassium [Moles/Vol] 4.5 mmol/L Normal 3.7-5.1 [facility] Comment on above: Performed By: #### C MP, LIPB, HBA1C ####[address] [phone] Protein [Mass/Vol] 6.9 g/dL Normal 6.3-8.0 [facility] Comment on above: Performed By: #### C MP, LIPB, HBA1C ####[place] [address] [place] [phone] Sodium [Moles/Vol] 138 mmol/L Normal 136-144 [facility] Comment on above: Performed By: #### C MP, LIPB, HBA1C ####[address] [phone] Urea nitrogen [Mass/Vol] 15 mg/dL Normal 9-24 [facility] Comment on above: Performed By: #### C MP, LIPB, HBA1C ####[place] [address] [place], [place] [phone] Hemoglobin A1con 09-19-2021 Glucose [Mass/Vol] 108 mg/dL Normal [facility] Comment on above: Result Comment: eAG: (Estimated average glucose) is a calculated value from HgbA1c and is medical claims representative of the average blood glucose level in the last 2-3 month period. Performed By: #### C MP, LIPB, HBA1C ####[facility] [place], [place] [phone] HbA1c (Bld) [Mass fraction] 5.4 % Normal 4.3-5.6 [facility] Comment on above: Result Comment: Amer [place] Diabetes Association guidelines indicate that patients with HgbA1c in the range 5.7-6.4% are at increased risk for development of diabetes, and intervention by lifestyle modification may be beneficial. HgbA1c greater or equal to 6.5% is considered diagnostic of diabetes. Performed By: #### C MP, LIPB, HBA1C ####[place] [address] [address], [place] [phone] Lipid Panel, [facility] 021 Cholesterol [Mass/Vol] 176 mg/dL Normal <200 [facility] Comment on above: Result Comment: <200 mg/dL, Desirable 200-239 mg/dL, Borderline high >239 mg/dL, High Performed By: #### C MP, LIPB, HBA1C ####[address] [phone] Cholesterol in HDL [Mass/Vol] 36 mg/dL Low >39 [facility] Comment on above: Result Comment: 40-5 9 mg/dL, Acceptable >59 mg/dL, High: Negative risk factor for coronary heart disease <40 mg/dL, Low: Positive risk factor for coronary heart disease Performed By: #### C MP, LIPB, HBA1C ####[address] [phone] Cholesterol in LDL [Mass/Vol] 96 mg/dL Normal <100 [facility] Comment on above: Result Comment: <100 mg/dL, Optimal 100-129 mg/dL, Near optimal/above optimal 130-159 mg/dL, Borderline high 160-189 mg/dL, High >189 mg/dL, Very high Secondary prevention optimal LDL Cholesterol levels are recommended to be < 70 mg/dL Performed By: #### C MP, LIPB, HBA1C ####[place] [address] [address] [place], [place] [phone] Fasting Time 12 hrs Normal [facility] Comment on above: Performed By: #### C MP, LIPB, HBA1C ####[place] [address] [place] [phone] LDL:HDL Ratio 2.67 High <2.54 [facility] Comment on above: Result Comment: Paz lowry: 1. National Cholesterol Education Program ATP III Guideline At-A-Glance Quick Desk Reference: National Heart, Lung, and Blood [place]. National Institutes of Health. 2001: NIH Publication No. 01-3305. 2. An International Atherosclerosis Society position paper: global recommendations for the management of dyslipidemia: executive summary, Atherosclerosis. 2014: 232(2):410-413. Performed By: #### C MP, LIPB, HBA1C ####[place] [phone] Non HDL Cholesterol 140 mg/dL High <130 [facility] Comment on above: Result Comment: <130 mg/dL, Optimal 130-159 mg/dL, Near optimal/above optimal 160-189 mg/dL, Borderline high 190-219 mg/dL, High >219 mg/dL, Very high Secondary prevention optimal non HDL Cholesterol levels are recommended to be < 100 mg/dL Performed By: #### C MP, LIPB, HBA1C ####[address] [phone] TC:HDL Ratio 4.89 Normal <5.10 [facility] Comment on above: Performed By: #### C MP, LIPB, HBA1C ####[address] [phone] Triglyceride [Mass/Vol] 219 mg/dL High <150 [facility] Comment on above: Result Comment: <150 mg/dL, Normal 150-199 mg/dL, Borderline high 200-499 mg/dL, High >499 mg/dL, Very high Performed By: #### C MP, LIPB, HBA1C ####[place] [phone] VLDL Cholesterol 44 mg/dL High <30 [facility] Comment on above: Performed By: #### C MP, LIPB, HBA1C ####[address] [facility] [place] [phone] Vital Signs Date Time Vital Sign Value Performing Clinician Kayleen gibson 01-07-2023 13:54-0400 Body height 167.6 cm Misha Bravo MD Work Phone: [facility] 01-07-2023 13:54-0400 Body weight 72.85 kg Misha Bravo MD Work Phone: [facility] 01-07-2023 13:54-0400 Diastolic blood pressure 88 mm[Hg] Misha Bravo MD Work Phone: [facility] 01-07-2023 13:54-0400 Heart rate 84 /min Misha Bravo MD Work Phone: [facility] 01-07-2023 13:54-0400 SaO2% (BldA) [Mass fraction] 98 % Misha Bravo MD Work Phone: [facility] 01-07-2023 13:54-0400 Systolic blood pressure 136 mm[Hg] Misha Bravo MD Work Phone: [facility] 09-16-2022 10:17-0500 Body height 167.6 cm Kaylie Fox WORKERS COMPENSATION SPECIALIST.MEDICAL STAFF COORDINATOR Work Phone: [facility] 09-16-2022 10:17-0500 Body temperature 98.29 [degF] Kaylie Fox WORKERS COMPENSATION SPECIALIST.MEDICAL STAFF COORDINATOR Work Phone: [facility] 09-16-2022 10:17-0500 Body weight 68.04 kg Kaylie Fox WORKERS COMPENSATION SPECIALIST.MEDICAL STAFF COORDINATOR Work Phone: [facility] 09-16-2022 10:17-0500 Diastolic blood pressure 83 mm[Hg] Kaylie Fox WORKERS COMPENSATION SPECIALIST.MEDICAL STAFF COORDINATOR Work Phone: [facility] 09-16-2022 10:17-0500 Heart rate 77 /min Kaylie Fox WORKERS COMPENSATION SPECIALIST.MEDICAL STAFF COORDINATOR Work Phone: [facility] 09-16-2022 10:17-0500 Respiratory rate 16 /min Kaylie Fox WORKERS COMPENSATION SPECIALIST.MEDICAL STAFF COORDINATOR Work Phone: [facility] 09-16-2022 10:17-0500 SaO2% (BldA) [Mass fraction] 99 % Kaylie Fox WORKERS COMPENSATION SPECIALIST.MEDICAL STAFF COORDINATOR Work Phone: [facility] 09-16-2022 10:17-0500 Systolic blood pressure 141 mm[Hg] Kaylie Fox WORKERS COMPENSATION SPECIALIST.MEDICAL STAFF COORDINATOR Work Phone: [facility] 08-20-2022 08:26-0400 Body weight 70.76 kg Misha Bravo MD Work Phone: [facility] 08-20-2022 08:26-0400 Diastolic blood pressure 80 mm[Hg] Misha Bravo MD Work Phone: [facility] 08-20-2022 08:26-0400 Heart rate 64 /min Misha Bravo MD Work Phone: [facility] 08-20-2022 08:26-0400 Systolic blood pressure 130 mm[Hg] Misha Bravo MD Work Phone: [facility] 03-02-2022 13:11-0400 Body weight 73.03 kg Dmitriy Morales WORKERS COMPENSATION SPECIALIST.MEDICAL STAFF COORDINATOR Work Phone: [facility] 03-02-2022 13:11-0400 Diastolic blood pressure 88 mm[Hg] Dmitriy hSaverhof WORKERS COMPENSATION SPECIALIST.MEDICAL STAFF COORDINATOR Work Phone: [facility] 03-02-2022 13:11-0400 Heart rate 54 /min Dmitriy Shaverhof WORKERS COMPENSATION SPECIALIST.MEDICAL STAFF COORDINATOR Work Phone: [facility] 03-02-2022 13:11-0400 Respiratory rate 16 /min Dmitriy Tannhof WORKERS COMPENSATION SPECIALIST.MEDICAL STAFF COORDINATOR Work Phone: [facility] 03-02-2022 13:11-0400 SaO2% (BldA) [Mass fraction] 97 % Dmitriy Shaverhof WORKERS COMPENSATION SPECIALIST.MEDICAL STAFF COORDINATOR Work Phone: [facility] 03-02-2022 13:11-0400 Systolic blood pressure 140 mm[Hg] Dmitriy Tannhof WORKERS COMPENSATION SPECIALIST.MEDICAL STAFF COORDINATOR Work Phone: [facility] 03-02-2022 12:47-0400 Body temperature 97.2 [degF] Nelli Shabazz WORKERS COMPENSATION SPECIALIST.MEDICAL STAFF COORDINATOR Work Phone: [facility] 03-02-2022 12:47-0400 Body weight 73.03 kg Nelli Shabazz WORKERS COMPENSATION SPECIALIST.MEDICAL STAFF COORDINATOR Work Phone: [facility] 03-02-2022 12:47-0400 Diastolic blood pressure 82 mm[Hg] Nelli Shabazz WORKERS COMPENSATION SPECIALIST.MEDICAL STAFF COORDINATOR Work Phone: [facility] 03-02-2022 12:47-0400 Heart rate 68 /min Nelli Shabazz WORKERS COMPENSATION SPECIALIST.MEDICAL STAFF COORDINATOR Work Phone: [facility] 03-02-2022 12:47-0400 Respiratory rate 18 /min Nelli Shabazz WORKERS COMPENSATION SPECIALIST.MEDICAL STAFF COORDINATOR Work Phone: [facility] 03-02-2022 12:47-0400 SaO2% (BldA) [Mass fraction] 98 % Nelli Shabazz WORKERS COMPENSATION SPECIALIST.MEDICAL STAFF COORDINATOR Work Phone: [facility] 03-02-2022 12:47-0400 Systolic blood pressure 128 mm[Hg] Nelli Mele WORKERS COMPENSATION SPECIALIST.MEDICAL STAFF COORDINATOR Work Phone: [facility] Encounters Encounter Date Encounter Type Care Provider Facility Start: 01-07-2023 End: 01-07-2023 Patient encounter procedure Misha Bravo MD Work Phone: Cardiology Comment on above: Pure hypercholestero lemia (Primary Dx) Start: 09-16-2022 End: 09-16-2022 ambulatory [facility] Facility:[facility] Start: 09-16-2022 End: 09-16-2022 Patient encounter procedure Kaylie Fox WORKERS COMPENSATION SPECIALIST.MEDICAL STAFF COORDINATOR Work Phone: [facility] Comment on above: Viral conjunctivitis (Primary Dx); Acute viral conjunctivitis of both eyes Start: 09-06-2022 Telephone encounter Misha Bravo MD Work Phone: Cardiology Comment on above: Results Start: 08-31-2022 ambulatory Debbie szymanski sustainability communicator Lab Start: 08-31-2022 End: 08-31-2022 Subsequent hospital visit by physician [facility] Work Phone: Cardiology Lab Comment on above: Abnormal EKG [R94.31 ] Start: 08-30-2022 Telephone encounter Debbie Arias sustainability communicator Lab Comment on above: Reminder Call Start: 08-20-2022 End: 08-20-2022 ambulatory MISHA BRVAO Facility:[facility] Start: 08-20-2022 End: 08-20-2022 Patient encounter procedure Misha Bravo MD Work Phone: Cardiology Comment on above: Shortness of breath (Primary Dx); Abnormal EKG Start: 03-05-2022 Telephone encounter Dmitriy nava WORKERS COMPENSATION SPECIALIST.MEDICAL STAFF COORDINATOR Work Phone: [facility] [place] Comment on above: Results Start: 03-02-2022 End: 03-02-2022 ambulatory DMITRIY MORALES Facility:[facility] Start: 03-02-2022 End: 03-02-2022 Subsequent hospital visit by physician [facility] [place] Work Phone: Radiology Comment on above: SOB (shortness of br eath) [R06.02] Start: 03-02-2022 End: 03-02-2022 Patient encounter procedure Nelli Shabazz WORKERS COMPENSATION SPECIALIST.MEDICAL STAFF COORDINATOR Work Phone: [facility] Comment on above: SOB (shortness of br eath) (Primary Dx) Fatigue, unspecified type (Primary Dx); SOB (shortness of breath); Abnormal EKG Start: 09-19-2021 End: 09-19-2021 ambulatory [facility] Procedures Date Procedure Procedure Detail Performing Clinician Start: 08-31-2022 End: 08-31-2022 Echo ttc r-t 2d w/wom-mode compl spec&colr d Misha Bravo MD Work Phone: Start: 03-02-2022 Radiologic exam ches t 2 views Dmitriy Moralse WORKERS COMPENSATION SPECIALIST.MEDICAL STAFF COORDINATOR Work Phone: Start: 03-02-2022 Urnls dip stick/tabl et rgnt auto w/o microscopy Dmitriy Morales WORKERS COMPENSATION SPECIALIST.MEDICAL STAFF COORDINATOR Work Phone: Start: 09-19-2021 Lipid 1996 panel - S patricia or Plasma Xr [place] Work Phone: Start: 06-06-2017 Adult depression scr eening assessment Nelli Shabazz WORKERS COMPENSATION SPECIALIST.MEDICAL STAFF COORDINATOR Work Phone: Start: 02-16-2015 Colonoscopy Nelli lee WORKERS COMPENSATION SPECIALIST.MEDICAL STAFF COORDINATOR Work Phone: Plan of Treatment Date Care Activity Detail Author Start: 01-23-2036 RSV Vaccine (1 - 1-dose 75+ series) RSV Vaccine (1 - 1-dose 75+ series) [facility] Start: 09-19-2026 Lipid panel Lipid Screening [facility] Start: 09-19-[address] [facility] Start: 03-02-2025 DIABETES SCREEN DIABETES SCREEN [facility] Start: 03-02-2025 Diabetes Screening Diabetes Screening [facility] Start: 02-16-[address] [facility] Start: 02-16-2025 COLORECTAL CANCER SCREENING COLORECTAL CANCER SCREENING [facility] Start: 02-16-2025 Screening for malignant neoplasm of colon [facility] Start: 01-20-[address] [facility] Start: 09-19-2024 DIABETES SCREEN DIABETES SCREEN [facility] Start: 06-21-2024 Covid-19 Vaccine ( season) Covid-[address] Vacc[address] () [facility] Start: 06-21-2024 Influenza [facility] Start: 01-07-2023 End: 03-09-2023 Lipid 1996 panel - Serum or Plasma LIPID PANEL BASIC Lab Routine Pure hypercholesterolemia Expected: 01/07/2023, Expires: 03/09/2023 [facility] Work Phone: Comment on above: Expected: 01/07/2023, Expires: Start: 10-21-2022 DEPRESSION ASSESSMENT DEPRESSION ASSESSMENT [facility] Start: 08-27-2022 End: 08-20-2023 Echocardiography ECHO Cardiology Routine Abnormal EKG Shortness of breath Expected: 08/27/2022, Expires: 08/20/2023 [facility] Work Phone: Comment on above: Expected: 08/27/2022, Expires: 3 Start: 08-27-2022 End: 08-20-2023 STRESS ECHO TREADMILL STRESS ECHO TREADMILL Cardiology Routine Abnormal EKG Shortness of breath Expected: 08/27/2022, Expires: 08/20/2023 [facility] Work Phone: Comment on above: Expected: 08/27/2022, Expires: 3 Start: 06-21-[address] [facility] Start: 03-02-2022 End: 05-02-2022 CBC W Auto Differential panel - Blood [facility] Work Phone: Comment on above: Expected: 03/02/2022, Expires: 2 Start: 03-02-2022 End: 05-02-2022 Comprehensive metabolic 2000 panel - Serum or Plasma [facility] Work Phone: Comment on above: Expected: 03/02/2022, Expires: 2 Start: 03-02-2022 End: 05-02-2022 T4 FREE/FREE THYROX [facility] Work Phone: Comment on above: Expected: 03/02/2022, Expires: 2 Start: 03-02-2022 End: 05-02-2022 Thyrotropin [Units/volume] in Serum or Plasma [facility] Work Phone: Comment on above: Expected: 03/02/2022, Expires: 2 Start: 03-02-2022 End: 05-02-2022 VITAMIN D 25 HYDROXY [facility] Work Phone: Comment on above: Expected: 03/02/2022, Expires: 2 Start: 10-21-2021 DEPRESSION ASSESSMENT DEPRESSION ASSESSMENT [facility] Start: 06-06-2018 Adult depression screening assessment DEPRESSION SCREENING [facility] Start: 06-14-2016 PROSTATE CANCER SCREENING DISCUSSION PROSTATE CANCER SCREENING DISCUSSION [facility] Start: 06-14-2016 Prostate specific antigen measurement Prostate Cancer Screening Discussion [facility] Start: 2011 SHINGRIX VACCINE (1 of 2) SHINGRIX VACCINE (1 of 2) [facility] Start: 2006 COLOGUARD (FIT-DNA) COLOGUARD (FIT-DNA) [facility] Start: [address]OGRAPHY [facility] Start: 2006 FECAL OCCULT BLOOD FECAL OCCULT BLOOD [facility] Start: 2006 Screening for malignant neoplasm of colon [facility] Start: [address] [facility] Start: 1979 Anxiety Screening Anxiety Screening [facility] Start: 1979 Depression Screening Depression Screening [facility] Start: 1979 HEPATITIS C SCREENING HEPATITIS C SCREENING [facility] Start: 1979 Hepatitis C screening Hepatitis C Screening [facility] Start: 1979 HIV SCREENING HIV SCREENING [facility] Start: 1979 HIV screening HIV Screening [facility] Start: 1966 COVID-19 VACCINE (#1) COVID-19 VACCINE (#1) [facility] Start: 1961 COVID-19 VACCINE (#1) COVID-19 VACCINE (#1) [facility] Bacteria identified in Urine by Culture URINE CULTURE Microbiology Routine Fatigue, unspecified type 03/02/2022 1:54 PM EDT [facility] Work Phone: End: 03-02-2023 ECG COMPLETE ECG COMPLETE ECG Routine SOB (shortness of breath) 1 Occurrences starting 03/02/2022 until 03/02/2023 [facility] Work Phone: Comment on above: 1 Occurrences starting 03/02/2022 until 03/02/2023 OUTSIDE VENDOR CARDI AC OUTPATIENT EXTENDED RHYTHM RECORDING (WITHOUT TELEMETRY) OUTSIDE VENDOR CARDIAC OUTPATIENT EXTENDED RHYTHM RECORDING (WITHOUT TELEMETRY) Holter Routine Abnormal EKG Shortness of breath Ordered: 08/20/2022 [facility] Work Phone: Comment on above: Ordered: 08/20/2022 Urinalysis complete panel - Urine URINALYSIS, WITH MICROSCOPIC Lab Routine Fatigue, unspecified type 03/02/2022 1:54 PM EDT [facility] Work Phone: [facility] Immunizations Immunization Date Immunization Notes Care Provider Aure [email or web address] 01-20-2015 tetanus toxoid, redu mandy diphtheria toxoid, and acellular pertussis vaccine, adsorbed Nelli Mele WORKERS COMPENSATION SPECIALIST.MEDICAL STAFF COORDINATOR Work Phone: [facility] Payers Date Payer Category Payer Unknown [employer] PPO [id number] 2021-Present [phone] [address] [place] [address] PPO [id number] 2021 Unknown [employer] PPO [id number] 2021-Present [phone] [address] [place] [address] PPO [id number] 2021 Unknown [id number] 2021 Unknown [id number] Social History Date Type Detail Facility Start: 12-23-2017 End: 08-20-2022 Tobacco smoking status NHIS Never smoked tobacco [facility] Start: 03-02-2022 End: 01-07-2023 Alcohol intake Current drinker of alcohol (finding) [facility] Start: 06-06-2017 History SDOH Alcohol Comment rarely [facility] Start: 1960 [facility] Start: 02-20-2022 End: 09-16-2022 Exposure to SARS-CoV-2 (event) Not sure [facility] Start: 12-23-2017 End: 08-20-2022 Tobacco use and exposure Smokeless tobacco [facility] Start: 09-25-2020 End: 03-02-2022 History of Social function [facility] Start: 09-25-2020 End: 03-02-[address] [facility] National Score (1-10 0), lower number is lower risk Not on file [facility] Start: 09-22-2021 Gender identity Identifies as male gender (finding) [facility] Clinical Notes 12-20-2006 to 01-07-2023 Misha Bravo MD - 01/07/2023 2:06 PM EDTPatient InstructionsStgenesis Fox APRN.STEPHANIA - 09/16/2022 10:33 AM ESTTelephone Encounter - Corrina Cole RN - 09/07/2022 3:38 PM EST Note Date & Type Note Facility 01-07-2023 History of Presen t illness Narrative Images from the original note were not included. Misha Bravo MD Interventional [place]iology [place] [address], [place] [address] [phone] Chief Complaint Patient presents with: Follow Up HISTORY OF PRESENT ILLNESS: Mr. Russ is a 62 year old male in my office today for assessment management of abnormal Holter monitors patient had atypical chest pain in the past underwent stress echocardiogram shows no evidence of ischemia with no EKG abnormality The monitor shows recurrent episodes of SVT patient is asymptomatic denies chest pain or shortness of breath no palpitation Exercise daily with no limitation Cardiac Risk Factors age (male over 45, female over 55), family history of CAD No past medical history on file. PAST SURGICAL HISTORY Procedure Laterality Date APPENDECTOMY COLONOSCOPY FLX DX W/COLLJ SPEC WHEN PFRMD 02/16/15 Colonoscopy INGUINAL HERNIA REPAIR HX 1977 LAPS SURG RPR RECURRENT INGUINAL HERNIA 01/20/07 right PAST SURGICAL HISTORY OF 6th digits removed bilateral hands and feet RPR 1ST INGUN HRNA AGE 6 YRS/> REDUCIBLE 2002 Hernia repair, inguinal right RPR 1ST INGUN HRNA AGE 6 YRS/> REDUCIBLE 1995 Hernia repair, inguinal Left TONSILLECTOMY PRIMARY/SECONDARY <AGE 12 Tonsillectomy FAMILY HISTORY Problem Relation Age of Onset Arthritis Father gout Blood Disease Father blood clots GI Mother irritable bowel dis other (kidney stones [Other]) Brother Heart Paternal Grandfather from [place] Heart Paternal Uncle from [place] None Brother None Brother None Brother Stroke Mother None Sister None Sister None Sister Social History Tobacco Use Smoking status: Never Smokeless tobacco: Never Substance Use Topics Alcohol use: Yes Comment: rarely Drug use: No ALLERGIES Allergen Reactions Lactose Intolerance* Medications: Current Outpatient Medications Medication Sig Dispense Refill trimethoprim-polymyxin (POLYTRIM) 10,000 unit- 1 mg/mL ophthalmic solution Use 1 Drop in the left eye four times daily. 10 mL 0 multivitamin tablet Take 1 tablet by mouth once daily. 0 Current Facility-Administered Medications Medication Dose Route Frequency Provider Last Rate Last Admin perflutren lipid microspheres 1.3 mL in NaCl (PF) 0.9% 10 mL injection (DEFINITY) INTRAVENOUS DIRECTED PRBala Bravo MD sodium chloride 0.9 % (flush) 10 mL (BD POSIFLUSH) 10 mL INTRAVENOUS DIRECTED MARLENE Bravo MD sodium chloride 0.9 % (flush) 10 mL (BD POSIFLUSH) 10 mL INTRAVENOUS DIRECTED MARLENE Bravo MD Review of Systems Constitutional: Negative for chills, diaphoresis, fever, malaise/fatigue and weight loss. HENT: Negative for congestion, ear discharge, ear pain, hearing loss, nosebleeds, sinus pain, sore throat and tinnitus. Eyes: Negative for blurred vision, double vision, photophobia, pain, discharge and redness. Respiratory: Negative for cough, hemoptysis, sputum production, shortness of breath, wheezing and stridor. Cardiovascular: Negative for chest pain, palpitations, orthopnea, claudication, leg swelling and PND. Gastrointestinal: Negative for abdominal pain, blood in stool, constipation, diarrhea, heartburn, melena, nausea and vomiting. Genitourinary: Negative for dysuria, flank pain, frequency, hematuria and urgency. Musculoskeletal: Negative for back pain, falls, joint pain, myalgias and neck pain. Skin: Negative for itching and rash. Neurological: Negative for dizziness, tingling, tremors, sensory change, speech change, focal weakness, seizures, loss of consciousness, weakness and headaches. Endo/Heme/Allergies: Negative for environmental allergies and polydipsia. Does not bruise/bleed easily. Psychiatric/Behavioral: Negative for depression, hallucinations, memory loss, substance abuse and suicidal ideas. The patient is not nervous/anxious and does not have insomnia. Physical Examination: Vitals:BP 136/88 Pulse 84 Ht 5' 6 (1.68m) Wt 160 lb 9.6 oz (72.8kg) SpO2 98% BMI 25.93 kg/(m^2). BP w/Orthostatic Vitals Date and Time Orthostatic BP Orthostatic Pulse BP Pulse BP Position BP Site BP Cuff Size 01/07/23 1354 -- -- 136/88 84 -- -- -- Last 2 Encounter Wt Readings: Date: Wt: 01/07/2023 72.8 kg (160 lb 9.6 oz) 09/16/2022 68 kg (150 lb) Physical Exam Constitutional: General: He is not in acute distress. Appearance: He is not diaphoretic. HENT: Head: Normocephalic and atraumatic. Right Ear: External ear normal. Left Ear: External ear normal. Nose: Nose normal. Mouth/Throat: Pharynx: Oropharynx is clear. Eyes: General: Right eye: No discharge. Left eye: No discharge. Conjunctiva/sclera: Conjunctivae normal. Pupils: Pupils are equal, round, and reactive to light. Cardiovascular: Rate and Rhythm: Normal rate and regular rhythm. Heart sounds: Normal heart sounds, S1 normal and S2 normal. No murmur heard. No friction rub. No gallop. No S3 or S4 sounds. Pulmonary: Effort: Pulmonary effort is normal. No respiratory distress. Breath sounds: Normal breath sounds. No wheezing or rales. Chest: Chest wall: No tenderness. Musculoskeletal: General: Normal range of motion. Cervical back: Normal range of motion and neck supple. Skin: General: Skin is warm and dry. Neurological: Mental Status: He is alert and oriented to person, place, and time. Psychiatric: Mood and Affect: Mood normal. Thought Content: Thought content normal. Pertinent Labs: CBC: Hemoglobin (g/dL) Date Value 03/02/2022 14.7 06/20/2017 15.1 Hematocrit (%) Date Value 03/02/2022 44.0 06/20/2017 44.7 WBC (k/uL) Date Value 03/02/2022 6.60 06/20/2017 7.02 Platelet Count (k/uL) Date Value 03/02/2022 223 06/20/2017 211 BMP: Glucose (mg/dL) Date Value 03/02/2022 84 09/19/2021 89 Potassium (mmol/L) Date Value 03/02/2022 4.9 09/19/2021 4.5 Sodium (mmol/L) Date Value 03/02/2022 137 09/19/2021 138 Chloride (mmol/L) Date Value 03/02/2022 101 09/19/2021 102 CO2 (mmol/L) Date Value 03/02/2022 29 09/19/2021 27 Creatinine (mg/dL) Date Value 03/02/2022 1.18 09/19/2021 1.15 BUN (mg/dL) Date Value 03/02/2022 15 09/19/2021 15 Anion Gap (mmol/L) Date Value 03/02/2022 7 09/19/2021 9 Calcium (mg/dL) Date Value 09/19/2021 9.4 Calcium, Total (mg/dL) Date Value 03/02/2022 9.9 INR: Lipid Profile: Cholesterol, Total Date Value Ref Range Status 09/19/2021 176 <200 mg/dL Final Comment: <200 mg/dL, Desirable 200-239 mg/dL, Borderline high >239 mg/dL, High HDL Cholesterol Date Value Ref Range Status 09/19/2021 36 (L) >39 mg/dL Final Comment: 40-59 mg/dL, Acceptable >59 mg/dL, High: Negative risk factor for coronary heart disease <40 mg/dL, Low: Positive risk factor for coronary heart disease LDL Cholesterol Date Value Ref Range Status 09/19/2021 96 <100 mg/dL Final Comment: <100 mg/dL, Optimal 100-129 mg/dL, Near optimal/above optimal 130-159 mg/dL, Borderline high 160-189 mg/dL, High >189 mg/dL, Very high Secondary prevention optimal LDL Cholesterol levels are recommended to be < 70 mg/dL Triglyceride Date Value Ref Range Status 09/19/2021 219 (H) <150 mg/dL Final Comment: <150 mg/dL, Normal 150-199 mg/dL, Borderline high 200-499 mg/dL, High >499 mg/dL, Very high Hemoglobin A1C: No results found for: HGBA1C TSH: No results found for: TSHREFL Prior Cardiac Testing Stress echo Holter Assessment and Plan: 62 years old with prior history of palpitation SVT Supraventricular tachycardia Patient is asymptomatic Few episode by Holter monitor No intervention is required 2. Atypical chest pain Negative stress test for ischemia Continue medical therapy Follow up planning: One year Electronically signed by Misha Bravo MD on January 07, 2023, 2:07 PM The above note was partially created using a dictation recognition software. A reasonable attempt has been made to correct any errors. documented in this encounter [facility] 09-16-2022 Note HNO ID: [id number] Author: Kaylie Fox APRN.MEDICAL STAFF COORDINATOR Service: ? Author Type: Nurse Practitioner Type: Progress Notes Filed: 09/16/2022 10:46 AM Note Text: [facility] Kaylie Fox APRN.MEDICAL STAFF COORDINATOR REFERRING PROVIDER: Josh Ricardo Russ is a 62 year old male who is here for evaluation of eye drainage. History of Illness Since Last Visit: Patient presents with eye complaints for approximately 2 weeks. He has had irritation, SCHMITT's, watery eyes. Drainage has been clear. He denies any illness prior to the complaints of eye drainage. He did have some mild allergy symptoms. He states the itchiness has resolved, but he continues to complain of drainage. Drainage is not purulent and stringy. His eyes are not matted shut in the morning. He denies any URI or sinus complaints. He denies any complaints of fever or chills. Other than the watery drainage from the eyes, he has been healthy. He did use some eyedrops his granddaughter had. He was concerned because the drops were , but states they were helping and symptoms nearly resolved. HISTORY History reviewed. No pertinent past medical history. PAST SURGICAL HISTORY Procedure Laterality Date APPENDECTOMY COLONOSCOPY FLX DX W/COLLJ SPEC WHEN PFRMD 02/16/15 Colonoscopy INGUINAL HERNIA REPAIR HX 1977 LAPS SURG RPR RECURRENT INGUINAL HERNIA 01/20/07 right PAST SURGICAL HISTORY OF 6th digits removed bilateral hands and feet RPR 1ST INGUN HRNA AGE 6 YRS/> REDUCIBLE 2002 Hernia repair, inguinal right RPR 1ST INGUN HRNA AGE 5 YRS/> REDUCIBLE 1995 Hernia repair, inguinal Left TONSILLECTOMY PRIMARY/SECONDARY Tonsillectomy Social History Tobacco Use Smoking status: Never Smokeless tobacco: Never Substance Use Topics Alcohol use: Yes Comment: rarely Drug use: No ALLERGIES: ALLERGIES Allergen Reactions Lactose Intolerance* MEDICATIONS: Current Outpatient Medications Medication Sig multivitamin tablet Take 1 tablet by mouth once daily. trimethoprim-polymyxin (POLYTRIM) 10,000 unit- 1 mg/mL ophthalmic solution Use 1 Drop in the left eye four times daily. predniSONE (DELTASONE) 20 mg tablet Prednisone 40 mg (2-20mg tablets) po QD for 5 days (Patient not taking: Reported on 09/16/2022) albuterol HFA (PROAIR HFA) 90 mcg/actuation inhaler Inhale 2 Puffs as instructed every 4 hours as needed. (Patient not taking: No sig reported) albuterol (PROVENTIL) 5 mg/mL nebu Inhale 0.5 mL as instructed one time only for 1 dose. 1 DOSE NOW - BACK OFFICE. PLACE 0.5 ML PER DROPPER AND 2.5 ML OF NORMAL SALINE INTO RESERVOIR. Current Facility-Administered Medications Medication Dose Route Frequency perflutren lipid microspheres 1.3 mL in NaCl (PF) 0.9% 10 mL injection (DEFINITY) INTRAVENOUS DIRECTED PRN sodium chloride 0.9 % (flush) 10 mL (BD POSIFLUSH) 10 mL INTRAVENOUS DIRECTED PRN sodium chloride 0.9 % (flush) 10 mL (BD POSIFLUSH) 10 mL INTRAVENOUS DIRECTED PRN IMMUNIZATIONS: Immunization History Administered Date(s) Administered Tdap (Age 7+) 01/20/2015 REVIEW OF SYSTEMS Review of Systems Constitutional: Negative for chills, fatigue and fever. HENT: Negative for congestion, postnasal drip, rhinorrhea, sinus pressure, sinus pain and sore throat. Eyes: Positive for discharge, redness and itching. Negative for photophobia, pain and visual disturbance. Respiratory: Negative for cough, chest tightness, shortness of breath and wheezing. Vital Signs: BP 141/83 Pulse 77 Temp 98.3 Resp 16 Ht 5' 6 (1.68m) Wt 150 lb (68.0kg) SpO2 99% BMI 24.22 kg/(m2). Physical Exam Constitutional: Appearance: Normal appearance. He is normal weight. HENT: Head: Normocephalic and atraumatic. Nose: Nose normal. Eyes: General: Lids are normal. Lids are everted, no foreign bodies appreciated. Vision grossly intact. Gaze aligned appropriately. No allergic shiner, visual field deficit or scleral icterus. Right eye: Discharge present. No foreign body or hordeolum. Left eye: Discharge (Lt > Rt) present.No foreign body or hordeolum. Extraocular Movements: Extraocular movements intact. Conjunctiva/sclera: Left eye: Hemorrhage (very mild) present. Comments: Cataract Rt eye Pulmonary: Effort: Pulmonary effort is normal. Musculoskeletal: General: Normal range of motion. Cervical back: Normal range of motion. Skin: General: Skin is warm and dry. Neurological: Mental Status: He is alert. Psychiatric: Mood and Affect: Mood normal. Behavior: Behavior normal. Thought Content: Thought content normal. Judgment: Judgment normal. DATA REVIEW Oximetry : 99% saturated at rest on room air. ASSESSMENT/PLAN: 1. Viral conjunctivitis - ICD9: 077.99, ICD10: B30.9 (primary diagnosis) Symptoms have been persistent x 2 weeks. Got relief with drops from his granddaughter . - see medication orders - course and contagiousness issues discussed, including hand w (more content not included)... [facility] 09-16-2022 Instructions Kaylie Fox APRN.[facility] - 09/16/2022 10:44 AM EST I sent eye drops to start -- if you are not feeling better over the next 3 - 5 days, please get a follow up with your eye doctor or family physician. Conjunctivitis Conjunctivitis is the term used to describe inflammation of the conjunctiva -- the thin, filmy membrane that covers the inside of your eyelids and the white part of your eye (sclera). Conjunctivitis is most commonly referred to as red or pink eye. The conjunctiva, which contains tiny blood vessels, produces mucus to coat and lubricate the surface of your eye. When the conjunctiva becomes irritated or inflamed, the blood vessels become larger and more prominent, making your eye appear red. Conjunctivitis may occur in one or both eyes. Symptoms of conjunctivitis include: Inflammation of the eye Increased tearing Soreness of the eye Foreign body sensation Itchiness of the eye Hazy or blurred vision due to mucous or pus Excess mucous (pus) Crusting of eyelashes in the morning What Causes Conjunctivitis? Many different sources of eye irritation can cause conjunctivitis. The most common are: Infections (viral and bacterial) Allergies Environmental irritants Viral infection is the most common cause of conjunctivitis. This same virus produces the familiar red and watery eyes, sore throat and runny nose of a common cold. Symptoms of conjunctivitis can last from one to two weeks and then will disappear on their own. Discomfort, however, can be alleviated with warm compresses applied to the eyes. Bacterial infections, such as staphylococcus or streptococcus, cause a type of red eye that produces considerable amounts of pus. Some bacterial infections, however, are more chronic and may produce little or no discharge except for some mild crusting of the eyelashes in the morning. Antibiotic eyedrops are typically used to treat bacterial conjunctivitis. Infectious conjunctivitis, whether bacterial or viral, can be quite contagious. Practicing good hygiene can help prevent the spread of conjunctivitis if you are infected. You should: Avoid re-using handkerchiefs and towels to wipe your face and eyes Wash your hands frequently Keep your hands away from your eyes Replace your eye cosmetics regularly -- do not share with other people Properly clean your contact lenses Allergic conjunctivitis is not infectious or contagious. It occurs when the body is exposed to materials that cause an allergic reaction, such as pollen or dander, and is often seasonal. Symptoms include redness, itching and/or burning eyes, tearing, enlarged vessels in the sclera (white part of the eye), and puffy eyelids. Treatment often includes applying cool compresses to the eyes and taking antihistamines. Environmental irritants, such as smoke or fumes, also may cause conjunctivitis. The symptoms are usually similar to those of allergic conjunctivitis. What Are Other Causes of Red Eyes? Generally, conjunctivitis is easily treated. However, if symptoms of conjunctivitis persist for an extended period of time after treatment, you should have your eyes examined by your mortgage loan counselor (Eye M.DChristiano), as these symptoms may indicate a more serious eye problem. There are several eye diseases that cause red eyes, some of which can lead to blindness unless diagnosed and treated. 2005 [employer] documented in this encounter [facility] 09-16-2022 History of Presen t illness Narrative [facility] Kaylie Fox APRN.MEDICAL STAFF COORDINATOR REFERRING PROVIDER: Josh Ricardo Russ is a 62 year old male who is here for evaluation of eye drainage. History of Illness Since Last Visit: Patient presents with eye complaints for approximately 2 weeks. He has had irritation, SCHMITT's, watery eyes. Drainage has been clear. He denies any illness prior to the complaints of eye drainage. He did have some mild allergy symptoms. He states the itchiness has resolved, but he continues to complain of drainage. Drainage is not purulent and stringy. His eyes are not matted shut in the morning. He denies any URI or sinus complaints. He denies any complaints of fever or chills. Other than the watery drainage from the eyes, he has been healthy. He did use some eyedrops his granddaughter had. He was concerned because the drops were , but states they were helping and symptoms nearly resolved. HISTORY History reviewed. No pertinent past medical history. PAST SURGICAL HISTORY Procedure Laterality Date APPENDECTOMY COLONOSCOPY FLX DX W/COLLJ SPEC WHEN PFRMD 02/16/15 Colonoscopy INGUINAL HERNIA REPAIR HX 1977 LAPS SURG RPR RECURRENT INGUINAL HERNIA 01/20/07 right PAST SURGICAL HISTORY OF 6th digits removed bilateral hands and feet RPR 1ST INGUN HRNA AGE 6 YRS/> REDUCIBLE 2002 Hernia repair, inguinal right RPR 1ST INGUN HRNA AGE 6 YRS/> REDUCIBLE 1995 Hernia repair, inguinal Left TONSILLECTOMY PRIMARY/SECONDARY <AGE 13 Tonsillectomy Social History Tobacco Use Smoking status: Never Smokeless tobacco: Never Substance Use Topics Alcohol use: Yes Comment: rarely Drug use: No ALLERGIES: ALLERGIES Allergen Reactions Lactose Intolerance* MEDICATIONS: Current Outpatient Medications Medication Sig multivitamin tablet Take 1 tablet by mouth once daily. trimethoprim-polymyxin (POLYTRIM) 10,000 unit- 1 mg/mL ophthalmic solution Use 1 Drop in the left eye four times daily. predniSONE (DELTASONE) 20 mg tablet Prednisone 40 mg (2-20mg tablets) po QD for 5 days (Patient not taking: Reported on 09/16/2022) albuterol HFA (PROAIR HFA) 90 mcg/actuation inhaler Inhale 2 Puffs as instructed every 4 hours as needed. (Patient not taking: No sig reported) albuterol (PROVENTIL) 5 mg/mL nebu Inhale 0.5 mL as instructed one time only for 1 dose. 1 DOSE NOW - BACK OFFICE. PLACE 0.5 ML PER DROPPER AND 2.5 ML OF NORMAL SALINE INTO RESERVOIR. Current Facility-Administered Medications Medication Dose Route Frequency perflutren lipid microspheres 1.3 mL in NaCl (PF) 0.9% 10 mL injection (DEFINITY) INTRAVENOUS DIRECTED PRN sodium chloride 0.9 % (flush) 10 mL (BD POSIFLUSH) 10 mL INTRAVENOUS DIRECTED PRN sodium chloride 0.9 % (flush) 10 mL (BD POSIFLUSH) 10 mL INTRAVENOUS DIRECTED PRN IMMUNIZATIONS: Immunization History Administered Date(s) Administered Tdap (Age 7+) 01/20/2015 REVIEW OF SYSTEMS Review of Systems Constitutional: Negative for chills, fatigue and fever. HENT: Negative for congestion, postnasal drip, rhinorrhea, sinus pressure, sinus pain and sore throat. Eyes: Positive for discharge, redness and itching. Negative for photophobia, pain and visual disturbance. Respiratory: Negative for cough, chest tightness, shortness of breath and wheezing. Vital Signs: BP 141/83 Pulse 77 Temp 98.3 Resp 16 Ht 5' 6 (1.68m) Wt 150 lb (68.0kg) SpO2 99% BMI 24.22 kg/(m^2). Physical Exam Constitutional: Appearance: Normal appearance. He is normal weight. HENT: Head: Normocephalic and atraumatic. Nose: Nose normal. Eyes: General: Lids are normal. Lids are everted, no foreign bodies appreciated. Vision grossly intact. Gaze aligned appropriately. No allergic shiner, visual field deficit or scleral icterus. Right eye: Discharge present. No foreign body or hordeolum. Left eye: Discharge (Lt > Rt) present.No foreign body or hordeolum. Extraocular Movements: Extraocular movements intact. Conjunctiva/sclera: Left eye: Hemorrhage (very mild) present. Comments: Cataract Rt eye Pulmonary: Effort: Pulmonary effort is normal. Musculoskeletal: General: Normal range of motion. Cervical back: Normal range of motion. Skin: General: Skin is warm and dry. Neurological: Mental Status: He is alert. Psychiatric: Mood and Affect: Mood normal. Behavior: Behavior normal. Thought Content: Thought content normal. Judgment: Judgment normal. DATA REVIEW Oximetry : 99% saturated at rest on room air. ASSESSMENT/PLAN: 1. Viral conjunctivitis - ICD9: 077.99, ICD10: B30.9 (primary diagnosis) Symptoms have been persistent x 2 weeks. Got relief with drops from his granddaughter . - see medication orders - course and contagiousness issues discussed, including hand washing. - Instructed to call if high fever, development of periorbital redness or swelling, eye pain, visual changes, concerns or if symptoms persist. - POLYMYXIN B SULFATE 10,000 UNIT-TRIMETHOPRIM 1 MG/ML EYE DROPS Kaylie Fox (Electronically signed expedite mailing) FOLLOW UP: Return if symptoms worsen or fail to improve. This note was generated with voice recognition software and may contain errors including spelling, grammar, and syntax and mis-recognition of what was dictated that are not fully corrected. documented in this encounter [facility] 09-07-2022 Miscellaneous Notes Pt. notified. Voices understanding. Has follow up with Dr. Bravo on 11/12/22. States he will let us know if he becomes symptomatic prior to that office visit. Corrina Cole RN Images from the original note were not included. Claudia Desai APRN.MEDICAL STAFF COORDINATOR You 4 hours ago (11:04 AM) Reviewed. 2 runs of VT, 2 runs of SVT. Recent normal stress echo. Follow up with Dr. Bravo as planned for consideration of addition of BB if symptomatic with brief SVT. Thank you! Claudia Desai APRN.STEPHANIA Michelle with [employer] called to report Zio Results: Result: V-Tach 5 beats Duration: 2 seconds Heart rate: 86-176 beats per minute SVT also in scan. Will upload results to site. Please review and advise. Natalie Owusu LPN documented in this encounter [facility] 08-31-2022 Nurse Note Pt here for out patient echo and stress echo. IV started left AC, # 24, flushed and patent. Definity given per protocol. Once test completed, IV discontinued, catheter intact. documented in this encounter [facility] 08-30-2022 Miscellaneous Notes Spoke with patient regarding reminder for stress test tomorrow and given instructions. documented in this encounter [facility] 08-20-2022 Note HNO ID: [id number] Author: Corrina Cole RN Service: ? Author Type: Registered Nurse Type: Progress Notes Filed: 08/20/2022 8:56 AM Note Text: EVENT MONITOR DISPOSABLE PATCH INSTRUCTIONS Patient Name: Ricardo Russ Clinic Number: [id number] Skin prepped and cleansed with alcohol Patch secured to prepped area Monitor Activated Serial #: [id number] Patient Instructed: Prescribed order timeframe Bathing guidelines Usage of event button and diary documentation Return of monitor at the end of prescribed order Call with problems [phone] or [phone]. [phone] Patient expresses a good understanding of instructions Corrina Cole RN [facility] 08-20-2022 Note HNO ID: [id number] Author: Misha Bravo MD Service: ? Author Type: Physician Type: Progress Notes Filed: 08/20/2022 8:49 AM Note Text: Misha Bravo MD Interventional [facility] [place] [address], [place] [address] [phone] Chief Complaint Patient presents with: Consult HISTORY OF PRESENT ILLNESS: Mr. 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 PAST SURGICAL HISTORY Procedure Laterality Date APPENDECTOMY COLONOSCOPY FLX DX W/COLLJ SPEC WHEN PFRMD 02/16/15 Colonoscopy INGUINAL HERNIA REPAIR HX 1977 LAPS SURG RPR RECURRENT INGUINAL HERNIA 01/20/07 right PAST SURGICAL HISTORY OF 6th digits removed bilateral hands and feet RPR 1ST INGUN HRNA AGE 6 YRS/> REDUCIBLE 2002 Hernia repair, inguinal right RPR 1ST INGUN HRNA AGE 6 YRS/> REDUCIBLE 1995 Hernia repair, inguinal Left TONSILLECTOMY PRIMARY/SECONDARY Tonsillectomy FAMILY HISTORY Problem Relation Age of Onset Arthritis Father gout Blood Disease Father blood clots GI Mother irritable bowel dis other (kidney stones [Other]) Brother Heart Paternal Grandfather from [place] Heart Paternal Uncle from [place] None Brother None Brother None Brother Stroke Mother None Sister None Sister None Sister Social History Tobacco Use Smoking status: Never Smokeless tobacco: Never Substance Use Topics Alcohol use: Yes Comment: rarely Drug use: No ALLERGIES Allergen Reactions Lactose Intolerance* Medications: Current Outpatient Medications Medication Sig Dispense Refill multivitamin tablet Take 1 tablet by mouth once daily. 0 predniSONE (DELTASONE) 20 mg tablet Prednisone 40 mg (2-20mg tablets) po QD for 5 days 10 tablet 0 albuterol HFA (PROAIR HFA) 90 mcg/actuation inhaler Inhale 2 Puffs as instructed every 4 hours as needed. (Patient not taking: Reported on 03/02/2022 ) 1 Inhaler 0 albuterol (PROVENTIL) 5 mg/mL nebu Inhale 0.5 mL as instructed one time only for 1 dose. 1 DOSE NOW - BACK OFFICE. PLACE 0.5 ML PER DROPPER AND 2.5 ML OF NORMAL SALINE INTO RESERVOIR. 1 mL 0 Current Facility-Administered Medications Medication Dose Route Frequency Provider Last Rate Last Admin perflutren lipid microspheres 1.3 mL in NaCl (PF) 0.9% 10 mL injection (DEFINITY) INTRAVENOUS DIRECTED PRN Misha Bravo MD sodium chloride 0.9 % (flush) 10 mL (BD POSIFLUSH) 10 mL INTRAVENOUS DIRECTED PRN Misha Bravo MD perflutren lipid microspheres 1.3 mL in NaCl (PF) 0.9% 10 mL injection (DEFINITY) INTRAVENOUS DIRECTED PRN Misha Bravo MD sodium chloride 0.9 % (flush) 10 mL (BD POSIFLUSH) 10 mL INTRAVENOUS DIRECTED PRBala Bravo MD Review of Systems Constitutional: Negative for chills, diaphoresis, fever, malaise/fatigue and weight loss. HENT: Negative for congestion, ear discharge, ear pain, hearing loss, nosebleeds, sinus pain, sore throat and tinnitus. Eyes: Negative for blurred vision, double vision, photophobia, pain, discharge and redness. Respiratory: Negative for cough, hemoptysis, sputum production, shortness of breath, wheezing and stridor. Cardiovascular: Negative for chest pain, palpitations, orthopnea, claudication, leg swelling and PND. Gastrointestinal: Negative for abdominal pain, blood in stool, constipation, diarrhea, heartburn, melena, nausea and vomiting. Genitourinary: Negative for dysuria, flank pain, frequency, hematuria and urgency. Musculoskeletal: Negative for back pain, falls, joint pain, myalgias and neck pain. Skin: Negative for itching and rash. Neurological: Positive for weakness. Negative for dizziness, tingling, tremors, sensory change, speech change, focal weakness, seizures, loss of consciousness and headaches. Endo/Heme/Allergies: Negative for environmental allergies and polydipsia. Does not bruise/bleed easily. Psychiatric/Behavioral: Negative for depression, hallucinations, memory loss, substance abuse and suicidal ideas. The patient is not nervous/anxious and does not have insomnia. Physical Examination: Vitals:BP 130/80 Pulse 64 Wt 156 lb (70.8kg) BP w/Orthostatic Vitals Date and Time Orthostatic BP Orthostatic Pulse BP Pulse BP Position BP Site BP Cuff Size 08/20/22 0826 -- -- 130/80 64 Sitting Right Arm Regular Adult Last 2 Encounter Wt Readings: Date: Wt (more content not included)... [facility] 08-20-2022 Note HNO ID: [id number] Author: Misha Bravo MD Service: Cardiovascular Surgery Author Type: Physician Type: Procedures Filed: 09/17/2022 2:15 PM Note Text: Patient Name: Ricardo Russ : 1960 Ordering Provider: Misha Bravo Indication: R06.02 Shortness of breath Type of Monitor: Extended Monitoring-Zio Patch Enrollment Dates: 08/20/2022-09/02/2022 [facility] 08-20-2022 History of Presen t illness Narrative EVENT MONITOR DISPOSABLE PATCH INSTRUCTIONS Patient Name: Ricardo Russ Clinic Number: [id number] Skin prepped and cleansed with alcohol Patch secured to prepped area Monitor Activated Serial #: [id number] Patient Instructed: Prescribed order timeframe Bathing guidelines Usage of event button and diary documentation Return of monitor at the end of prescribed order Call with problems [phone] or [phone]. [phone] Patient expresses a good understanding of instructions Corrina Cole RN Images from the original note were not included. Misha Bravo MD Interventional Cardiology [facility] [address], [place] [address] [phone] Chief Complaint Patient presents with: Consult HISTORY OF PRESENT ILLNESS: Mr. 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 PAST SURGICAL HISTORY Procedure Laterality Date APPENDECTOMY COLONOSCOPY FLX DX W/COLLJ SPEC WHEN PFRMD 02/16/15 Colonoscopy INGUINAL HERNIA REPAIR HX 1977 LAPS SURG RPR RECURRENT INGUINAL HERNIA 01/20/07 right PAST SURGICAL HISTORY OF 6th digits removed bilateral hands and feet RPR 1ST INGUN HRNA AGE 5 YRS/> REDUCIBLE 2002 Hernia repair, inguinal right RPR 1ST INGUN HRNA AGE 5 YRS/> REDUCIBLE 1995 Hernia repair, inguinal Left TONSILLECTOMY PRIMARY/SECONDARY <AGE 13 Tonsillectomy FAMILY HISTORY Problem Relation Age of Onset Arthritis Father gout Blood Disease Father blood clots GI Mother irritable bowel dis other (kidney stones [Other]) Brother Heart Paternal Grandfather from [place] Heart Paternal Uncle from [place] None Brother None Brother None Brother Stroke Mother None Sister None Sister None Sister Social History Tobacco Use Smoking status: Never Smokeless tobacco: Never Substance Use Topics Alcohol use: Yes Comment: rarely Drug use: No ALLERGIES Allergen Reactions Lactose Intolerance* Medications: Current Outpatient Medications Medication Sig Dispense Refill multivitamin tablet Take 1 tablet by mouth once daily. 0 predniSONE (DELTASONE) 20 mg tablet Prednisone 40 mg (2-20mg tablets) po QD for 5 days 10 tablet 0 albuterol HFA (PROAIR HFA) 90 mcg/actuation inhaler Inhale 2 Puffs as instructed every 4 hours as needed. (Patient not taking: Reported on 03/02/2022 ) 1 Inhaler 0 albuterol (PROVENTIL) 5 mg/mL nebu Inhale 0.5 mL as instructed one time only for 1 dose. 1 DOSE NOW - BACK OFFICE. PLACE 0.5 ML PER DROPPER AND 2.5 ML OF NORMAL SALINE INTO RESERVOIR. 1 mL 0 Current Facility-Administered Medications Medication Dose Route Frequency Provider Last Rate Last Admin perflutren lipid microspheres 1.3 mL in NaCl (PF) 0.9% 10 mL injection (DEFINITY) INTRAVENOUS DIRECTED PRBala Bravo MD sodium chloride 0.9 % (flush) 10 mL (BD POSIFLUSH) 10 mL INTRAVENOUS DIRECTED MARLENE Bravo MD perflutren lipid microspheres 1.3 mL in NaCl (PF) 0.9% 10 mL injection (DEFINITY) INTRAVENOUS DIRECTED PRBala Bravo MD sodium chloride 0.9 % (flush) 10 mL (BD POSIFLUSH) 10 mL INTRAVENOUS DIRECTED MARLENE Bravo MD Review of Systems Constitutional: Negative for chills, diaphoresis, fever, malaise/fatigue and weight loss. HENT: Negative for congestion, ear discharge, ear pain, hearing loss, nosebleeds, sinus pain, sore throat and tinnitus. Eyes: Negative for blurred vision, double vision, photophobia, pain, discharge and redness. Respiratory: Negative for cough, hemoptysis, sputum production, shortness of breath, wheezing and stridor. Cardiovascular: Negative for chest pain, palpitations, orthopnea, claudication, leg swelling and PND. Gastrointestinal: Negative for abdominal pain, blood in stool, constipation, diarrhea, heartburn, melena, nausea and vomiting. Genitourinary: Negative for dysuria, flank pain, frequency, hematuria and urgency. Musculoskeletal: Negative for back pain, falls, joint pain, myalgias and neck pain. Skin: Negative for itching and rash. Neurological: Positive for weakness. Negative for dizziness, tingling, tremors, sensory change, speech change, focal weakness, seizures, loss of consciousness and headaches. Endo/Heme/Allergies: Negative for environmental allergies and polydipsia. Does not bruise/bleed easily. Psychiatric/Behavioral: Negative for depression, hallucinations, memory loss, substance abuse and suicidal ideas. The patient is not nervous/anxious and does not have insomnia. Physical Examination: Vitals:BP 130/80 Pulse 64 Wt 156 lb (70.8kg) BP w/Orthostatic Vitals Date and Time Orthostatic BP Orthostatic Pulse BP Pulse BP Position BP Site BP Cuff Size 08/20/22 0826 -- -- 130/80 64 Sitting Right Arm Regular Adult Last 2 Encounter Wt Readings: Date: Wt: 08/20/2022 70.8 kg (156 lb) 03/02/2022 73 kg (161 lb) Physical Exam Constitutional: General: He is not in acute distress. Appearance: He is not diaphoretic. HENT: Head: Normocephalic and atraumatic. Right Ear: External ear normal. Left Ear: External ear normal. Nose: Nose normal. Mouth/Throat: Pharynx: Oropharynx is clear. Eyes: General: Right eye: No discharge. Left eye: No discharge. Conjunctiva/sclera: Conjunctivae normal. Pupils: Pupils are equal, round, and reactive to light. Cardiovascular: Rate and Rhythm: Normal rate and regular rhythm. Heart sounds: Normal heart sounds, S1 normal and S2 normal. No murmur heard. No friction rub. No gallop. No S3 or S4 sounds. Pulmonary: Effort: Pulmonary effort is normal. No respiratory distress. Breath sounds: Normal breath sounds. No wheezing or rales. Chest: Chest wall: No tenderness. Musculoskeletal: General: Normal range of motion. Cervical back: Normal range of motion and neck supple. Skin: General: Skin is warm and dry. Neurological: Mental Status: He is alert and oriented to person, place, and time. Psychiatric: Mood and Affect: Mood normal. Behavior: Behavior normal. Thought Content: Thought content normal. Judgment: Judgment normal. Pertinent Labs: CBC: Hemoglobin (g/dL) Date Value 03/02/2022 14.7 06/20/2017 15.1 Hematocrit (%) Date Value 03/02/2022 44.0 06/20/2017 44.7 WBC (k/uL) Date Value 03/02/2022 6.60 06/20/2017 7.02 Platelet Count (k/uL) Date Value 03/02/2022 223 06/20/2017 211 BMP: Glucose (mg/dL) Date Value 03/02/2022 84 09/19/2021 89 Potassium (mmol/L) Date Value 03/02/2022 4.9 09/19/2021 4.5 Sodium (mmol/L) Date Value 03/02/2022 137 09/19/2021 138 Chloride (mmol/L) Date Value 03/02/2022 101 09/19/2021 102 CO2 (mmol/L) Date Value 03/02/2022 29 09/19/2021 27 Creatinine (mg/dL) Date Value 03/02/2022 1.18 09/19/2021 1.15 BUN (mg/dL) Date Value 03/02/2022 15 09/19/2021 15 Anion Gap (mmol/L) Date Value 03/02/2022 7 09/19/2021 9 Calcium (mg/dL) Date Value 09/19/2021 9.4 Calcium, Total (mg/dL) Date Value 03/02/2022 9.9 INR: Lipid Profile: Cholesterol, Total Date Value Ref Range Status 09/19/2021 176 <200 mg/dL Final Comment: <200 mg/dL, Desirable 200-239 mg/dL, Borderline high >239 mg/dL, High HDL Cholesterol Date Value Ref Range Status 09/19/2021 36 (L) >39 mg/dL Final Comment: 40-59 mg/dL, Acceptable >59 mg/dL, High: Negative risk factor for coronary heart disease <40 mg/dL, Low: Positive risk factor for coronary heart disease LDL Cholesterol Date Value Ref Range Status 09/19/2021 96 <100 mg/dL Final Comment: <100 mg/dL, Optimal 100-129 mg/dL, Near optimal/above optimal 130-159 mg/dL, Borderline high 160-189 mg/dL, High >189 mg/dL, Very high Secondary prevention optimal LDL Cholesterol levels are recommended to be < 70 mg/dL Triglyceride Date Value Ref Range Status 09/19/2021 219 (H) <150 mg/dL Final Comment: <150 mg/dL, Normal 150-199 mg/dL, Borderline high 200-499 mg/dL, High >499 mg/dL, Very high Hemoglobin A1C: No results found for: HGBA1C TSH: No results found for: TSHREFL Prior Cardiac Testing EKG Assessment and Plan: 62 years old gentleman with exertional dyspnea and exertional fatigue Symptoms potentially related to angina equivalent Schedule for echocardiography to assess LV function rule out any valvular heart disease stress echocardiography for intermediate risk of obstructive coronary artery disease assessment Patient will have a Zio patch for 2 weeks to assess maximum and minimum heart rate Rule out any conduction abnormality Exertional dyspnea Likely angina equivalent need to rule out coronary artery disease stress echo is ordered 2. Rhythm conduction abnormality First-degree heart block and incomplete right bundle branch block we will order Zio patch Likely requires only monitoring for the time being Follow up plannin WEEKS Electronically signed by Misha Bravo MD on August 20, 2022, 8:46 AM The above note was partially created using a dictation recognition software. A reasonable attempt has been made to correct any errors. documented in this encounter [facility] 03-05-2022 Miscellaneous Notes Patient notified of results, verbalizes understanding of instructions. Becky Moralez LPN Can you please call the patient and let him know that I reviewed his test results. Urine came back negative for any bacteria. UA showed mild protein. Labs were relatively normal. Vitamin D and thyroid test within normal limits. AST which is a liver function test which is mildly elevated. At this time I see no causes for his symptoms. I would highly encourage him to eat a well-balanced diet, stay well-hydrated, and get adequate sleep. If he is agreeable we can do an at-home sleep study to evaluate for any sleep apnea. Please let me know what he prefers to do. Thank you. Dmitriy Morales APRN.STEPHANIA documented in this encounter [facility] 03-02-2022 Note HNO ID: [id number] Author: RT Harriet(R) Service: Nuclear Medicine Author Type: Technologist Type: Progress Notes Filed: 03/02/2022 2:22 PM Note Text: Radiology Service Progress Note PATIENT NAME: Ricardo Russ DATE OF SERVICE: March 02, 2022 TIME: 2:14 PM PATIENT IDENTITY VERIFICATION COMPLETED USING TWO (2) IDENTIFIERS: Name and Date of confirmed by patient verbally. FALL SCREENING: Has the patient had 2 falls in the last year or 1 fall with injury or currently using an Ambulatory Assistive Device (Walker, Cane, Wheelchair, Crutches, etc.)? No PATIENT GENDER DATA: Male PATIENT RELEVANT IMPLANT DATA REVIEWED: Not Applicable RADIOLOGY DEPARTMENT: General X-ray: Exam(s) Completed: Chest X-Ray PERIPHERAL IV DATA: Not applicable SIGNED BY: RT Harriet(R) March 02, 2022 2:14 PM [facility] 03-02-2022 Note HNO ID: [id number] Author: Dmitriy Morales APRN.CNP Service: ? Author Type: Nurse Practitioner Type: Progress Notes Filed: 03/02/2022 2:24 PM Note Text: This is a 62 year old male who presents today with: Patient presents with: Acute Visit: SOB and fatique HISTORY OF PRESENT ILLNESS: Ricardo Russ is a 62 year old male. Patient presents with: Acute Visit: SOB and fatique Here in the office for SOB and fatigue. Has noticed he feels exhausted after work. More tired than normal. Has been worse the past 2 months. Noticed SOB about 2-3 weeks ago with exertion. Improves with rest. No illness, fever, chills, abdominal pain, or N/V/D. History of Covid twice, fall 2019 and then Spring 2020. Recovered well. No chest pain, palpitations, dizziness, or edema. BM's regular. PAST MEDICAL HISTORY: History reviewed. No pertinent past medical history. PAST SURGICAL HISTORY Procedure Laterality Date - APPENDECTOMY - COLONOSCOPY FLX DX W/COLLJ SPEC WHEN PFRMD 02/16/15 Colonoscopy - INGUINAL HERNIA REPAIR HX 1977 - LAPS SURG RPR RECURRENT INGUINAL HERNIA 01/20/07 right - PAST SURGICAL HISTORY OF 6th digits removed bilateral hands and feet - RPR 1ST INGUN HRNA AGE 6 YRS/> REDUCIBLE 2002 Hernia repair, inguinal right - RPR 1ST INGUN HRNA AGE 5 YRS/> REDUCIBLE 1995 Hernia repair, inguinal Left - TONSILLECTOMY PRIMARY/SECONDARY Tonsillectomy ALLERGIES Lactose Intolerance [Lactase] MEDICATIONS Current Outpatient Medications Medication Sig - multivitamin tablet Take 1 tablet by mouth once daily. - predniSONE (DELTASONE) 20 mg tablet Prednisone 40 mg (2-20mg tablets) po QD for 5 days - albuterol HFA (PROAIR HFA) 90 mcg/actuation inhaler Inhale 2 Puffs as instructed every 4 hours as needed. (Patient not taking: Reported on 03/02/2022 ) - albuterol (PROVENTIL) 5 mg/mL nebu Inhale 0.5 mL as instructed one time only for 1 dose. 1 DOSE NOW - BACK OFFICE. PLACE 0.5 ML PER DROPPER AND 2.5 ML OF NORMAL SALINE INTO RESERVOIR. No current facility-administered medications for this visit. FAMILY HISTORY Problem Relation Age of Onset - Arthritis Father gout - Blood Disease Father blood clots - GI Mother irritable bowel dis - other (kidney stones [Other]) Brother - Heart Paternal Grandfather from [place] - Heart Paternal Uncle from [place] - None Brother - None Brother - None Brother - Stroke Mother - None Sister - None Sister - None Sister Social History Tobacco Use - Smoking status: Never Smoker - Smokeless tobacco: Never Used Substance Use Topics - Alcohol use: Yes Comment: rarely - Drug use: No REVIEW OF SYSTEMS GENERAL: + Fatigue HEENT: Negative for frequent or significant headaches, No changes in hearing or vision. NECK: Negative for lumps, goiter, pain and significant neck swelling RESPIRATORY: + SOB CARDIOVASCULAR: Negative for chest pain, leg swelling, orthopnea, or palpitations GI: No nausea, vomiting, or diarrhea/constipation. No hematochezia/melena. No heartburn or reflux symptoms. : No history of dysuria, frequency or incontinence MUSCULOSKELETAL: Negative for joint pain or swelling. SKIN: Negative for lesions, rash, and itching ENDOCRINE: Negative for cold or heat intolerance, polyuria, polydipsia and goiter NEURO: No history of headaches, syncope, paralysis, seizures or tremors MOOD: Negative for depression, anxiety, or suicidal ideation. EXAM: BP 140/88 Pulse (!) 54 Resp 16 Wt 73 kg (161 lb) SpO2 97% BMI 25.99 kg/m? PHYSICAL EXAM: General Appearance: Well appearing, alert, in no acute distress, well-hydrated, well nourished. Skin: Skin color, texture, turgor normal, no suspicious rashes or lesions. Head: Normocephalic, no masses, lesions, tenderness or abnormalities. Eyes: Anicteric sclera. Extraocular movements are intact. Neck: Supple, no adenopathy; thyroid symmetric, normal size, no bruits. Lungs: Lungs clear to auscultation. No wheezing, rhonchi, rales. Heart: RRR without murmur, gallop, or rubs. No ectopy. Abdomen: Normal abdominal exam, Abdomen soft, non-tender. Bowel sounds normal. No masses, organomegaly, Negative CVA tenderness. Extremities: No deformities, edema, skin discoloration, clubbing or cyanosis. Good capillary refill. Peripheral Pulses: Normal, Capillary refill <2secs, strong peripheral pulses, Pulses palpable. ECG: Sinus rhythm with first-degree AV block, right bundle branch block. UA: WNL ASSESSMENT/PLAN: 1. Fatigue, unspecified type - ICD9: 780.79, ICD10: R53.83 (primary diagnosis) - Get the following labs and urine testing completed to further evaluate any acute causes of his symptoms. - CBC + DIFF - COMP METABOLIC PANEL - TSH BLD - T4 FREE/FREE THYROX - VITAMIN D 25 HYDROXY - URINALYSIS, WITH MICROSCOPIC - URINE CULTURE 2. SOB (shortness of breath) - ICD9: 786.05, ICD10: R06.02 - XR CHEST 2V FRONTAL/LAT - ECG COMPLETE 3. Abnormal EKG - ICD (more content not included)... [facility] 03-02-2022 Note HNO ID: [id number] Author: Nelli Shabazz APRN.MEDICAL STAFF COORDINATOR Service: ? Author Type: Nurse Practitioner Type: Progress Notes Filed: 03/02/2022 1:06 PM Note Text: Patient triaged at [facility]. Here today with 2 months of sob, fatigue. Denies uri symptoms and chest pain. [facility] 03-02-2022 History of Presen t illness Narrative Radiology Service Progress Note PATIENT NAME: Ricardo Russ DATE OF SERVICE: March 02, 2022 TIME: 2:14 PM PATIENT IDENTITY VERIFICATION COMPLETED USING TWO (2) IDENTIFIERS: Name and Date of confirmed by patient verbally. FALL SCREENING: Has the patient had 2 falls in the last year or 1 fall with injury or currently using an Ambulatory Assistive Device (Walker, Cane, Wheelchair, Crutches, etc.)? No PATIENT GENDER DATA: Male PATIENT RELEVANT IMPLANT DATA REVIEWED: Not Applicable RADIOLOGY DEPARTMENT: General X-ray: Exam(s) Completed: Chest X-Ray PERIPHERAL IV DATA: Not applicable SIGNED BY: RT Harriet(R) March 02, 2022 2:14 PM documented in this encounter [facility] 03-02-2022 Instructions Dmitriy Morales APRN.STEPHANIA - 03/02/2022 1:36 PM EDT 1.) Get labs and chest xray completed. 2.) Urine will be sent off for examination. 3.) Recommend supportive care at home, stay well hydrated. 4.) May schedule appointment with cardiology 5.) Red flag symptoms go to ER. 6.) Follow up pending test results or sooner as needed. documented in this encounter [facility] 03-02-2022 History of Presen t illness Narrative This is a 62 year old male who presents today with: Patient presents with: Acute Visit: SOB and fatique HISTORY OF PRESENT ILLNESS: Ricardo Russ is a 62 year old male. Patient presents with: Acute Visit: SOB and fatique Here in the office for SOB and fatigue. Has noticed he feels exhausted after work. More tired than normal. Has been worse the past 2 months. Noticed SOB about 2-3 weeks ago with exertion. Improves with rest. No illness, fever, chills, abdominal pain, or N/V/D. History of Covid twice, fall 2019 and then Spring 2020. Recovered well. No chest pain, palpitations, dizziness, or edema. BM's regular. PAST MEDICAL HISTORY: History reviewed. No pertinent past medical history. PAST SURGICAL HISTORY Procedure Laterality Date APPENDECTOMY COLONOSCOPY FLX DX W/COLLJ SPEC WHEN PFRMD 02/16/15 Colonoscopy INGUINAL HERNIA REPAIR HX 1977 LAPS SURG RPR RECURRENT INGUINAL HERNIA 01/20/07 right PAST SURGICAL HISTORY OF 6th digits removed bilateral hands and feet RPR 1ST INGUN HRNA AGE 6 YRS/> REDUCIBLE 2002 Hernia repair, inguinal right RPR 1ST INGUN HRNA AGE 6 YRS/> REDUCIBLE 1995 Hernia repair, inguinal Left TONSILLECTOMY PRIMARY/SECONDARY <AGE 13 Tonsillectomy ALLERGIES Lactose Intolerance [Lactase] MEDICATIONS Current Outpatient Medications Medication Sig multivitamin tablet Take 1 tablet by mouth once daily. predniSONE (DELTASONE) 20 mg tablet Prednisone 40 mg (2-20mg tablets) po QD for 5 days albuterol HFA (PROAIR HFA) 90 mcg/actuation inhaler Inhale 2 Puffs as instructed every 4 hours as needed. (Patient not taking: Reported on 03/02/2022 ) albuterol (PROVENTIL) 5 mg/mL nebu Inhale 0.5 mL as instructed one time only for 1 dose. 1 DOSE NOW - BACK OFFICE. PLACE 0.5 ML PER DROPPER AND 2.5 ML OF NORMAL SALINE INTO RESERVOIR. No current facility-administered medications for this visit. FAMILY HISTORY Problem Relation Age of Onset Arthritis Father gout Blood Disease Father blood clots GI Mother irritable bowel dis other (kidney stones [Other]) Brother Heart Paternal Grandfather from [place] Heart Paternal Uncle from [place] None Brother None Brother None Brother Stroke Mother None Sister None Sister None Sister Social History Tobacco Use Smoking status: Never Smoker Smokeless tobacco: Never Used Substance Use Topics Alcohol use: Yes Comment: rarely Drug use: No REVIEW OF SYSTEMS GENERAL: + Fatigue HEENT: Negative for frequent or significant headaches, No changes in hearing or vision. NECK: Negative for lumps, goiter, pain and significant neck swelling RESPIRATORY: + SOB CARDIOVASCULAR: Negative for chest pain, leg swelling, orthopnea, or palpitations GI: No nausea, vomiting, or diarrhea/constipation. No hematochezia/melena. No heartburn or reflux symptoms. : No history of dysuria, frequency or incontinence MUSCULOSKELETAL: Negative for joint pain or swelling. SKIN: Negative for lesions, rash, and itching ENDOCRINE: Negative for cold or heat intolerance, polyuria, polydipsia and goiter NEURO: No history of headaches, syncope, paralysis, seizures or tremors MOOD: Negative for depression, anxiety, or suicidal ideation. EXAM: BP 140/88 Pulse (!) 54 Resp 16 Wt 73 kg (161 lb) SpO2 97% BMI 25.99 kg/m PHYSICAL EXAM: General Appearance: Well appearing, alert, in no acute distress, well-hydrated, well nourished. Skin: Skin color, texture, turgor normal, no suspicious rashes or lesions. Head: Normocephalic, no masses, lesions, tenderness or abnormalities. Eyes: Anicteric sclera. Extraocular movements are intact. Neck: Supple, no adenopathy; thyroid symmetric, normal size, no bruits. Lungs: Lungs clear to auscultation. No wheezing, rhonchi, rales. Heart: RRR without murmur, gallop, or rubs. No ectopy. Abdomen: Normal abdominal exam, Abdomen soft, non-tender. Bowel sounds normal. No masses, organomegaly, Negative CVA tenderness. Extremities: No deformities, edema, skin discoloration, clubbing or cyanosis. Good capillary refill. Peripheral Pulses: Normal, Capillary refill <2secs, strong peripheral pulses, Pulses palpable. ECG: Sinus rhythm with first-degree AV block, right bundle branch block. UA: WNL ASSESSMENT/PLAN: 1. Fatigue, unspecified type - ICD9: 780.79, ICD10: R53.83 (primary diagnosis) - Get the following labs and urine testing completed to further evaluate any acute causes of his symptoms. - CBC + DIFF - COMP METABOLIC PANEL - TSH BLD - T4 FREE/FREE THYROX - VITAMIN D 25 HYDROXY - URINALYSIS, WITH MICROSCOPIC - URINE CULTURE 2. SOB (shortness of breath) - ICD9: 786.05, ICD10: R06.02 - XR CHEST 2V FRONTAL/LAT - ECG COMPLETE 3. Abnormal EKG - ICD9: 794.31, ICD10: R94.31 - Discussed EKG results with the patient, recommend follow-up with cardiology for further evaluation. - Red flag symptoms given to patient, he verbalizes understanding when to seek emergency care. - CONSULT TO CARDIOLOGY Follow-up pending test results or sooner as needed. Discussed treatment plan and patient voices understanding. Patient's questions answered appropriately. Medications and potential side effects were discussed and patient voices understanding. Dmitriy Morales APRN.CNP This note was partially generated using TuTanda voice recognition system. Note was reviewed for accuracy. There may be minor misspellings or grammar miscues with TuTanda voice recognition. documented in this encounter [facility] 03-02-2022 History of Presen t illness Narrative Patient triaged at [facility]. Here today with 2 months of sob, fatigue. Denies uri symptoms and chest pain. documented in this encounter [facility] 09-19-2021 Note HNO ID: [id number] Author: Papa Schulz MD Service: ? Author Type: Physician Type: Progress Notes Filed: 09/19/2021 5:20 PM Note Text: Chief Complaint Patient presents with: Multiple Concerns: diabetes and skin lesions HPI Ricardo Russ is a 61 year old male who presents here today for diabetes concerns. Previous patient of Dr. Nicole. No bowel, Gi, or urinary issues. Derm: has a spot on the right thigh and the outer part of right eye. Does not seem to be changing much, maybe have gotten a little bigger over the last few years. Concerned about diabetes, he has a numb spot to the ball of the right foot that at times will burn, sometimes worse at night. Does not keep him awake during the night. He has occ dizziness if he hasn't eat a lot or gone too long without eating. He has an aunt and brother who are diabetic, mom and dad did not have diabetes as far as he knows. Denies any excessive thirst or urination, no vision changes. 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 Past medical history, appointments, medications, allergies reviewed. Previous Medical History No past medical history on file. Previous Surgical History PAST SURGICAL HISTORY Procedure Laterality Date - APPENDECTOMY - COLONOSCOP W/ OR W/O [facility] SPEC 02/16/15 Colonoscopy - INGUINAL HERNIA REPAIR HX 1977 - LAP HERNIA REPAIR RECURRENT-CRISTOBAL 01/20/07 right - PAST SURGICAL HISTORY OF 6th digits removed bilateral hands and feet - REMOVAL OF TONSILS,<12 Y/O Tonsillectomy - REPAIR ING HERNIA,5+Y/O,REDUCIBL 2002 Hernia repair, inguinal right - REPAIR ING HERNIA,5+Y/O,REDUCIBL 1995 Hernia repair, inguinal Left Family History FAMILY HISTORY Problem Relation Age of Onset - Arthritis Father gout - Blood Disease Father blood clots - GI Mother irritable bowel dis - other (kidney stones [Other]) Brother - Heart Paternal Grandfather from [place] - Heart Paternal Uncle from [place] - None Brother - None Brother - None Brother - Stroke Mother - None Sister - None Sister - None Sister Patient Allergies ALLERGIES Allergen Reactions - Lactose Intolerance* Current Medications Current Outpatient Medications on File Prior to Visit Medication Sig - predniSONE (DELTASONE) 20 mg tablet Prednisone 40 mg (2-20mg tablets) po QD for 5 days - albuterol HFA (PROAIR HFA) 90 mcg/actuation inhaler Inhale 2 Puffs as instructed every 4 hours as needed. - albuterol (PROVENTIL) 5 mg/mL nebu Inhale 0.5 mL as instructed one time only for 1 dose. 1 DOSE NOW - BACK OFFICE. PLACE 0.5 ML PER DROPPER AND 2.5 ML OF NORMAL SALINE INTO RESERVOIR. - multivitamin tablet Take 1 tablet by mouth once daily. No current facility-administered medications on file prior to visit. Social History Social History Tobacco Use - Smoking status: Never Smoker - Smokeless tobacco: Never Used Substance Use Topics - Alcohol use: Yes Comment: rarely - Drug use: No EXAM: BP 118/70 Pulse 74 Resp 16 Wt 73.9 kg (163 lb) BMI 26.31 kg/m? General Appearance: Well appearing, alert, in no acute distress, well-hydrated, well nourished.. Skin: kenyatta keratosis right side face, small inflamed dry skin right thigh. Lungs: Lungs clear to auscultation. No wheezing, rhonchi, rales.. Heart: RRR without murmur, gallop, or rubs. No ectopy. Health Maintenance List COVID-19 VACCINE(1) Never done DEPRESSION SCREENING Never done HEPATITIS C SCREENING Never done HIV SCREENING Never done SHINGRIX VACCINE(1 of 2) Never done PROSTATE CANCER SCREENING DISCUSSION due on 06/14/2016 DIABETES SCREEN due on 06/20/2020 INFLUENZA(1) Never done LIPID SCREEN due on 06/20/2022 DTAP,TDAP,TD(2 - Td or Tdap) due on 01/20/2025 COLORECTAL CANCER SCREENING due on 02/16/2025 MENINGOCOCCAL CONJUGATE Aged Out Data reviewed none ASSESSMENT/PLAN: 1. Screening for diabetes mellitus - ICD9: V77.1, ICD10: Z13.1 (primary diagnosis) - COMP METABOLIC PANEL - HGB A1C 2. Hyperlipidemia, unspecified hyperlipidemia type - ICD9: 272.4, ICD10: E78.5 - LIPID PANEL BASIC - COMP METABOLIC PANEL Notify of lab results Monitor skin Follow up prn I agree with the Chief Complaint, ROS, and Past Histories independently gathered by the clinical manufacturing support engineer and the remaining scribed note accurately describes my personal service to the patient. Medical Decision Making: Problems: Low: 2+ self-limited or minor problems Data: Unique test(s) ordered: 2 Risk: Low: Low risk from testing/treatment Medical Decision Making Level: 3 - Low Papa Schulz MD The documentation for this note was completed by Cecily Dawn Ma acting as scribe for Papa Schulz MD. September 19, 2021 8:07 AM. Cecily Dawn Ma [facility] 12-20-2006 History of Past i llness Narrative Problem Noted Date Resolved Date Inguinal hernia without ment ion of obstruction or gangrene, recurrent unilateral or unspecified 12/20/2006 01/20/2015 documented as of this encounter (statuses as of 03/02/2022) [facility] History of Past illness Narrative* Problem Noted Date Resolved Date Inguinal hernia without ment ion of obstruction or gangrene, recurrent unilateral or unspecified 12/20/2006 01/20/2015 documented as of this encounter (statuses as of 03/02/2022) [facility] History of Past illness Narrative* Problem Noted Date Resolved Date Inguinal hernia without ment ion of obstruction or gangrene, recurrent unilateral or unspecified 12/20/2006 01/20/2015 documented as of this encounter (statuses as of 03/15/2022) [facility] History of Past illness Narrative* Problem Noted Date Resolved Date Inguinal hernia without ment ion of obstruction or gangrene, recurrent unilateral or unspecified 12/20/2006 01/20/2015 documented as of this encounter (statuses as of 08/20/2022) [facility] History of Past illness Narrative* Problem Noted Date Resolved Date Inguinal hernia without ment ion of obstruction or gangrene, recurrent unilateral or unspecified 12/20/2006 01/20/2015 documented as of this encounter (statuses as of 08/30/2022) [facility] History of Past illness Narrative* Problem Noted Date Resolved Date Inguinal hernia without ment ion of obstruction or gangrene, recurrent unilateral or unspecified 12/20/2006 01/20/2015 documented as of this encounter (statuses as of 08/31/2022) [facility] History of Past illness Narrative* Problem Noted Date Resolved Date Inguinal hernia without ment ion of obstruction or gangrene, recurrent unilateral or unspecified 12/20/2006 01/20/2015 documented as of this encounter (statuses as of 09/01/2022) [facility] History of Past illness Narrative* Problem Noted Date Resolved Date Inguinal hernia without ment ion of obstruction or gangrene, recurrent unilateral or unspecified 12/20/2006 01/20/2015 documented as of this encounter (statuses as of 09/01/2022) [facility] History of Past illness Narrative* Problem Noted Date Resolved Date Inguinal hernia without ment ion of obstruction or gangrene, recurrent unilateral or unspecified 12/20/2006 01/20/2015 documented as of this encounter (statuses as of 09/07/2022) [facility] History of Past illness Narrative* Problem Noted Date Resolved Date Inguinal hernia without ment ion of obstruction or gangrene, recurrent unilateral or unspecified 12/20/2006 01/20/2015 documented as of this encounter (statuses as of 09/16/2022) [facility] History of Past illness Narrative* Problem Noted Date Resolved Date Inguinal hernia without ment ion of obstruction or gangrene, recurrent unilateral or unspecified 12/20/2006 01/20/2015 documented as of this encounter (statuses as of 01/07/2023) [facility] note* Diagnosis SOB (shortness of breath)- Primary Shortness of breath documented in this encounter [facility] note* Diagnosis Fatigue, unspecified type- Primary SOB (shortness of breath) Shortness of breath Abnormal EKG Nonspecific abnormal electrocardiogram (ECG) (EKG) documented in this encounter [facility] note* Diagnosis Shortness of breath- Primary Abnormal EKG Nonspecific abnormal electrocardiogram (ECG) (EKG) documented in this encounter [facility] note* Diagnosis Abnormal EKG Nonspecific abnormal electrocardiogram (ECG) (EKG) Shortness of breath documented in this encounter [facility] note* Diagnosis Abnormal EKG Nonspecific abnormal electrocardiogram (ECG) (EKG) Shortness of breath documented in this encounter [facility] note* Diagnosis Viral conjunctivitis- Primary Unspecified diseases of conjunctiva due to viruses Acute viral conjunctivitis of both eyes documented in this encounter [facility] note* Diagnosis Pure hypercholesterolemia- Primary documented in this encounter [facility] note* Diagnosis SOB (shortness of breath) Shortness of breath documented in this encounter [facility] for referral (narrative)* Outpatient Procedure (Routine) - Open Specialty Diagnoses / Procedures Referred By Contac t [facility] Diagnoses Abnormal EKG Shortness of breath Procedures STRESS ECHO TREADMILL ECHO TTHRC R-T 2D W/WO M-MODE COMPLETE REST&ST Misha Bravo MD [address] [place] [address] Fax: [facility] [address] [place] [id number] Referral ID Status Reason Start Date Expiration Date V isits Requested Visits Authorized [id number] Open Auto-Generate d Referral 08/27/2022 08/20/2023 1 1 * Outpatient Procedure (Routine) - Open Specialty Diagnoses / Procedures Referred By Contac t Referred To [facility] Diagnoses Abnormal EKG Shortness of breath Procedures ECHO ECHO TTHRC R-T 2D W/WOM-MODE COMPL SPEC&COLR D Misha Bravo MD [address] [place] [address] Fax: [address] [address] Referral ID Status Reason Start Date Expiration Date V isits Requested Visits Authorized [id number] Open Auto-Generate d Referral 08/27/2022 08/20/2023 1 1 [facility] for referral (narrative)* Outpatient Procedure (Routine) - Closed Specialty Diagnoses / Procedures Referred By Contac t Referred To [facility] Diagnoses Abnormal EKG Shortness of breath Procedures ECHO ECHO TTHRC R-T 2D W/WOM-MODE COMPL SPEC&COLR Misha Austin MD [address] [place] [address] Fax: [address] [address] Referral ID Status Reason Start Date Expiration Date V isits Requested Visits Authorized [id number] Closed Auto-Generate d Referral 08/21/2022 10/20/2022 1 1 [facility] for referral (narrative)* Outpatient Procedure (Routine) - Closed Specialty Diagnoses / Procedures Referred By Contac t Referred To [facility] Diagnoses Abnormal EKG Shortness of breath Procedures STRESS ECHO TREADMILL ECHO TTHRC R-T 2D W/WO M-MODE COMPLETE REST&ST Misha Bravo MD [address] [place] [address] [facility] [address] [place] [address] Referral ID Status Reason Start Date Expiration Date V isits Requested Visits Authorized [id number] Closed Auto-Generate d Referral 08/21/2022 10/20/2022 1 1 [facility] for visit Narrative* Outpatient Procedure (Routine) - Closed Specialty Diagnoses / Procedures Referred By Contac t Referred To Contact [facility] Diagnoses Abnormal EKG Shortness of breath Procedures ECHO ECHO TTHRC R-T 2D W/WOM-MODE COMPL SPEC&COLR Misha Austin MD [address] [place] [address] [facility] [address] [place] [address] Referral ID Status Reason Start Date Expiration Date V isits Requested Visits Authorized [id number] Closed Auto-Generate d Referral 08/21/2022 10/20/2022 1 1 [facility] for visit Narrative* Outpatient Procedure (Routine) - Closed Specialty Diagnoses / Procedures [facility] Diagnoses Abnormal EKG Shortness of breath Procedures STRESS ECHO TREADMILL ECHO TTHRC R-T 2D W/WO M-MODE COMPLETE REST&ST Misha Bravo MD [address] [place] [address] [facility] [address] [place] [address] Referral ID Status Reason Start Date Expiration Date V isits Requested Visits Authorized [id number] Closed Auto-Generate d Referral 08/21/2022 10/20/2022 1 1 [facility] for visit Narrative* Diagnostic Procedure Only (Routine) - Closed Specialty Diagnoses / Procedures Referred By Contac t Referred To Contact Radiology / [facility] Diagnoses SOB (shortness of breath) xray ml Procedures RADIOLOGIC EXAM CHEST 2 VIEWS XR CHEST Dmitriy Morales TIANA.MEDICAL STAFF COORDINATOR [address] [place] [address] [facility] [address] [place] [address] Referral ID Status Reason Start Date Expiration Date Visits Re quested Visits Authorized [id number] Closed 03/02/2022 10/20/[address] [facility] Reason for Referral Specialty Diagnoses / Procedures Referred By Contac t Referred To Contact Cardiology Diagnoses Abnormal EKG Procedures CONSULT TO CARDIOLOGY OFFICE/OUTPATIENT [facility] 60-74 MINUTES Dmitriy Morales, WORKERS COMPENSATION SPECIALIST.MEDICAL STAFF COORDINATOR [address] [place] [address] Referral ID Status Reason Start Date Expiration Date Visits Requested Visits Authorized [id number] Pending Review PCP Requested Referral 03/02/2022 03/02/2023 1 1 Specialty Diagnoses / Procedures Referred By Aisha t [facility] Diagnoses SOB (shortness of breath) Procedures ECG COMPLETE ECG ROUTINE ECG W/LEAST 12 LDS W/I&R Dmitriy Morales, WORKERS COMPENSATION SPECIALIST.MEDICAL STAFF COORDINATOR [address] [place] [address] [facility] [place] [facility] [address] [place] [address] Referral ID Status Reason Start Date Expiration Date Visits Requested Visits Authorized [id number] Pending Review Auto-Generat ed Referral 03/02/2022 03/02/2023 1 1 Medications Administered Section Inactive Administered Medications - up to 3 most recent administrations Medication Order MAR Action Action Date Dose Rate Site perflutren lipid microspheres 1.3 mL in NaCl (PF) 0.9% 10 mL injection (DEFINITY) INTRAVENOUS, DIRECTED NEEDED, 1 dose, Starting on Sat08/20/22 at 0841, Until Sat08/31/22 at 0958, Per-Protocol - for use during ECHO procedure only, If no IV access, insert saline lock prior to administering contrast. Discontinue saline lock post exam. It patient has central line or IVAD, may access for administering according to line specific nursing protocol. Once exam is complete, flush line and de-access per line specific nursing protocol. Dilute 1.3 mL of Definity with 8.7 mL of preservative-free saline. Given 08/31/2022 9:58 AM EST 5 mL Summary Purpose Family History No Family History Records FoundNo Family History Records Found Advance Directives No Advanced Directives Records FoundNo Advanced Directives Records Found Additional Source Comments Source Comments (unrecognize d section and content) In the event this informatio n is protected by the Federal Confidentiality of Alcohol and Drug Abuse Patient Records regulations: The Federal rules restrict any use of the information to criminally investigate or prosecute any alcohol or drug abuse patient.[facility] the event this information is protected by the Federal Confidentiality of Alcohol and Drug Abuse Patient Records regulations: The Federal rules restrict any use of the information to criminally investigate or prosecute any alcohol or drug abuse patient.[facility] the event this information is protected by the Federal Confidentiality of Alcohol and Drug Abuse Patient Records regulations: The Federal rules restrict any use of the information to criminally investigate or prosecute any alcohol or drug abuse patient.[facility] the event this information is protected by the Federal Confidentiality of Alcohol and Drug Abuse Patient Records regulations: The Federal rules restrict any use of the information to criminally investigate or prosecute any alcohol or drug abuse patient.[facility] the event this information is protected by the Federal Confidentiality of Alcohol and Drug Abuse Patient Records regulations: The Federal rules restrict any use of the information to criminally investigate or prosecute any alcohol or drug abuse patient.[facility] the event this information is protected by the Federal Confidentiality of Alcohol and Drug Abuse Patient Records regulations: The Federal rules restrict any use of the information to criminally investigate or prosecute any alcohol or drug abuse patient.[facility] the event this information is protected by the Federal Confidentiality of Alcohol and Drug Abuse Patient Records regulations: The Federal rules restrict any use of the information to criminally investigate or prosecute any alcohol or drug abuse patient.[facility] the event this information is protected by the Federal Confidentiality of Alcohol and Drug Abuse Patient Records regulations: The Federal rules restrict any use of the information to criminally investigate or prosecute any alcohol or drug abuse patient.[facility] the event this information is protected by the Federal Confidentiality of Alcohol and Drug Abuse Patient Records regulations: The Federal rules restrict any use of the information to criminally investigate or prosecute any alcohol or drug abuse patient.[facility] the event this information is protected by the Federal Confidentiality of Alcohol and Drug Abuse Patient Records regulations: The Federal rules restrict any use of the information to criminally investigate or prosecute any alcohol or drug abuse patient.[facility] the event this information is protected by the Federal Confidentiality of Alcohol and Drug Abuse Patient Records regulations: The Federal rules restrict any use of the information to criminally investigate or prosecute any alcohol or drug abuse patient.[facility] the event this information is protected by the Federal Confidentiality of Alcohol and Drug Abuse Patient Records regulations: The Federal rules restrict any use of the information to criminally investigate or prosecute any alcohol or drug abuse patient.[facility] Reason for Visit (unrecogniz ed section and content) Reason Comments Shortness of Breath SOB and fatigue x 2 months Specialty Diagnoses / Procedures Referred By Aisha pantoja Referred To Contact Laboratory Medicine / LAB [facility] Diagnoses lab Procedures LAB Papa Schulz MD [address] [place] [address] Lab [facility] [address] [place] [address] Referral ID Status Reason Start Date Expiration Date V isits Requested Visits Authorized [id number] Authorized 09/19/2021 10/20/2022 99 99 Reason Comments Acute Visit SOB and fatique Specialty Diagnoses / Procedures Referred By Aisha pantoja Referred To Contact Laboratory Medicine / LAB [facility] Diagnoses lab Procedures LAB Papa Schulz MD [address] [place] [address] [facility] [address] [place] [address] Reason Comments Results Reason Comments Consult Specialty Diagnoses / Procedures Referred By Aisha pantoja Referred To Contact Cardiology / CARD ADMIN [facility] Diagnoses Abnormal EKG [R94.31] Procedures NEW PATIENT Dmitriy Morales APRN.MEDICAL STAFF COORDINATOR [address] [place] [address] Misha Bravo MD [address] [place] [address] Referral ID Status Reason Start Date Expiration Date V isits Requested Visits Authorized [id number] Closed Financial Clearance Required - Self Pay Patient Cleared - INN Insurance Found 08/20/2022 11/18/2022 1 1 Reason Comments Reminder Call Reason Comments Eye Problem Left eye redness, ir ritable, drainage, sx for two weeks, Patient used left over prescription eye drops Reason Comments Follow Up Specialty Diagnoses / Procedures Referred By Contac t Referred To Contact Cardiology / [facility] Diagnoses 6 week follow up OK'd double book with Dr. Bravo Procedures OFFICE/OUTPATIENT ESTABLISHED MOD MDM 30-39 MIN EST PATIENT Papa Schulz MD [address] [place] [address] Misha Bravo MD [address] [place] [address] Referral ID Status Reason Start Date Expiration Date Visits Re quested Visits Authorized [id number] Closed 01/07/2023 10/20/2023 1 1 Care Teams (unrecognized sec tion and content) Manager Beverage Relationship Specialty Start Date End Date Papa Schulz MD [address] [place] [address] PCP - General Family Practice 03/02/22 Manager Beverage Relationship Specialty Start Date End Date Papa Schulz MD [address] [place] [address] PCP - General Family Practice 03/02/22 Manager Beverage Relationship Specialty Start Date End Date Papa Schulz MD [address] [place] [address] PCP - General Family Practice 03/02/22 Manager Beverage Relationship Specialty Start Date End Date Papa Schulz MD [address] [place] [address] PCP - General Family Medicine 03/02/22 Manager Beverage Relationship Specialty Start Date End Date Papa Schulz MD [address] [place] [address] PCP - General Family Medicine 03/02/22 Manager Beverage Relationship Specialty Start Date End Date Papa Schulz MD [address] [place] [address] PCP - General Family Medicine 03/02/22 Manager Beverage Relationship Specialty Start Date End Date Papa Schulz MD [address] [place] [address] PCP - General Family Medicine 03/02/22 Manager Beverage Relationship Specialty Start Date End Date Papa Schulz MD [address] [place] [address] PCP - General Family Medicine 03/02/22 Manager Bever[employer] Relationship Specialty Start Date End Date Papa Schulz MD [address] [place] [address] PCP - General Family Medicine 03/02/22 Manager Beverage Relationship Specialty Start Date End Date Papa Schulz MD [address] [place] [address] PCP - General Family Medicine 03/02/22 Manager Beverage Relationship Specialty Start Date End Date Papa Schulz MD [address] [place] [address] PCP - General Family Medicine 03/02/22 (unrecognized sect ion and content) No Status Records FoundNo Status Records Found INFORMATION SOURCE (unrecogn ized section and content) DATE CREATED AUTHOR 09/01/2022 [facility] DATE CREATED AUTHOR 'S DIANAIZ ATION 09/18/2022 [facility] FOR RECORDS PERTAINING TO PATIENTS WHO ARE OR HAVE BEEN ENROLLED IN A CHEMICAL DEPENDENCY/SUBSTANCEABUSE PROGRAM, SOME INFORMATION MAY BE OMITTED. This clinical summary was aggregated from multiple sources. Caution should be exercised in using it in the provision of clinical care. This summary normalizes information from multiple sources, and as a consequence, information in this document may materially change the coding, format and clinical context of patient data. In addition, data may be omitted in some cases. CLINICAL DECISIONS SHOULD BE BASED ON THE PRIMARY CLINICAL RECORDS. [facility] [employer] [facility]. provides no warranty or guarantee of the accuracy or completeness of information in this document.
--- NOTE | 2024-08-11 11:10 | CA.SCORE ---
Calcium Scoring Date of Study:: 08/11/24 Indications Indications: Fatigue Coronary Calcium Scoring: High-resolution Computed Tomographic imaging of the chest was performed on [08/11/2024], with particular attention paid to the coronary arteries. Images from the examination were analyzed for the presence and extent of coronary artery calcification , using coronary calcium quantification software. The patient tolerated the procedure well and there were no complications. The results of the coronary calcification analysis are provided below. Findings Coronary Artery Left Main (LM): 0 Left Anterior Descending (LAD): 0 Left Circumflex (LCX): 0 Right Coronary Artery (RCA): 0 Total Agatston Score: 0 Percentile Rankin Calcium Scoring Interpretation: Different methods to categorize the overall amount of coronary plaque. Overall amount CAC SIS Visual of coronary plaque P1 Mild -100 <2 1-2 vessels with mild amount of plaque P2 Moderate 101-300 3-4 1-2 vessels with moderate amount, 3 vessels with mild amount of plaque P3 Severe 301-999 5-7 3 vessels with moderate amount, 1 vessel with severe amount of plaque P4 Extensive >1000 >8 2-3 vessels with severe amount of plaque Conclusion: No atherosclerotic plaquing noted
== END | disposition home or self-care (01) ==
DX: R53.82 Chronic fatigue, unspecified (principal); E55.9 Vitamin D deficiency, unspecified; F41.8 Other specified anxiety disorders; R94.5 Abnormal results of liver function studies
CPT/HCPCS: 75571; 76380; 76705

== ENCOUNTER → 2025-04-27 | Outpatient (CLI) | payer OTHER, SELFPAY ==
--- NOTE | 2025-04-27 16:11 | CT_ITS ---
PROCEDURE: ABDOMEN W/WO IV CONTRAST 04/27/2025 REASON FOR EXAM: VAGUE HYPERECHOIC LESION IN LEFT LOBE OF LIVER TECHNIQUE: ABDOMEN W/WO IV CONTRAST. Multiplanar Sagittal and Coronal images were obtained. One or more dose reduction techniques were used (e.g., Automated exposure control, adjustment of the mA and/or kV according to patient size, use of iterative reconstruction technique. CONTRAST: Isovue-300 VOLUME: 98 mL RADIATION DOSE SUMMARY: CTDlvol: 19.95 mGy DLP: 896.75 mGycm COMPARISON: Ultrasound of the abdomen dated 08/11/2024. FINDINGS: Linear atelectasis is seen in the right lower lobe. The visualized lung bases are otherwise unremarkable. The heart is normal in size. The coronary arteries are not calcified. Normal liver. 6.7 mm calcification is seen in the left hepatic lobe most likely representing calcified granuloma. Normal gallbladder and extrahepatic biliary system. Normal spleen. Normal pancreas. Normal bilateral adrenal glands. Normal size of the right kidney. There is no right renal mass. There are no right renal calculi. There is no right hydronephrosis. Normal visualized right ureter. Normal size of the left kidney. There is no left renal mass. There are no left renal calculi. There is no left hydronephrosis. Normal visualized left ureter. Normal visualized stomach. Normal small intestine. Normal colon. The appendix is visualized and appears normal. There is no demonstrated peritoneal fluid. Normal abdominal aorta. Punctate atherosclerotic calcifications are seen in its wall. Normal inferior vena cava. Normal retroperitoneum. Normal abdominal wall. Normal osseous structures. CT/Abdomen W/WO IV Contrast IMPRESSION: Left hepatic lobe calcification most likely representing a calcified granuloma. Otherwise unremarkable CT scan of the abdomen. Reading Location: [place] [id number]
[2025-04-27 16:28] LABS: CREATININE FINGERSTICK 1.1 mg/dL (0.70-1.30); EGFR FINGERSTICK > 60.0000 mL/min (>60)
== END | disposition home or self-care (01) ==
LOC: CT 15:58
DX: R94.5 Abnormal results of liver function studies (principal); D18.00 Hemangioma unspecified site
CPT/HCPCS: 74170; Q9967